=== PATIENT | female | born 1935 | race Caucasian/White ===

== ENCOUNTER 2016-10-19 15:39 | Emergency (ER) | payer MEDICAID, MEDICARE ==
[~2016-10-19] VITALS: Ht 165.1 cm; Wt 48.0 kg
[~2016-10-19 15:39] MED LIST: ACET-2178 PO; ALBU2.5V13 IH; AMLO10TA4 PO; ASPI-1035 PO; CRAN450T10 PO; DOCU-138 PO; FLEET ENEMA RC; LEVO500T15 PO; MULT-278 PO; VIT D3 PO; VITAMIN B COMPLEX PO
[2016-10-19 16:29] LABS: CHLORIDE 99 mEq/L (98-107); INDEX HEMOLYSI 1 (1-3); INDEX ICTERIC 1 (1-4); INDEX LIPEMIC 1 (1-3)
[2016-10-19 16:31] LABS: INR 1.2; PROTHROMBIN TIME 12.1 sec
[2016-10-19 16:32] LABS: BASOPHILS % 0.7 % (0.0-2.0); HEMATOCRIT. 33.2 % (36.0-48.0); HEMOGLOBIN. 10.9 g/dL (12.0-16.0); LYMPHOCYTES % 26.8 % (20.0-50.0); MEAN CORPUSCULAR HEMOGLOBIN 26.4 pg (28.0-32.0); MEAN CORPUSCULAR HGB CONC 32.8 g/dL (31.0-37.0); MEAN CORPUSCULAR VOLUME 80.4 fL (81.0-99.0); MEAN PLATELET VOLUME 6.5 fl (7.4-10.4); MONOCYTES % 9.7 % (2.0-8.0); NEUTROPHILS % 59.8 % (40.0-76.0); PLATELET 330 x1000/uL (130-400); RED BLOOD CELL COUNT 4.13 mill/uL (4.2-5.4); RED CELL DISTRIBUTION WIDTH 14.2 % (11.6-14.6); WHITE BLOOD COUNT 9.2 x1000/uL (4.5-11.0)
[2016-10-19 16:35] LABS: ALANINE AMINOTRANSFERASE 20 IU/L (13-61); ALBUMIN 2.6 g/dL (3.4-5.0); ANION GAP 12; CARBON DIOXIDE 27 mEq/L (21-32); UREA NITROGEN BLOOD 17 mg/dL (7-21)
[2016-10-19 16:37] LABS: eGFR > 60 mL/min (>60)
[2016-10-19 20:16] VITALS: BP 151/67
== END 2016-10-19 22:36 | disposition home or self-care (01) ==
LOC: ER 15:41
DX: N93.9 Abnormal uterine and vaginal bleeding, unspecified (principal); I10 Essential (primary) hypertension; M19.90 Unspecified osteoarthritis, unspecified site; F20.9 Schizophrenia, unspecified; F03.90 Unspecified dementia, unspecified severity, without behavioral disturbance, psychotic disturbance, mood disturbance, and anxiety; H54.0 Blindness, both eyes
CPT/HCPCS: 36415; 76856; 80053; 85025; 85610; 99285

== ENCOUNTER 2017-02-02 13:31 | Inpatient (IN) | payer MEDICARE ==
[~2017-02-02] VITALS: Ht 157.5 cm; Wt 49.9 kg
[~2017-02-02 13:31] MED LIST changes: -ASPI-1035 PO; +ASPI-1159 PO
[2017-02-02] MEDS ORDERED: SODIUM CHLORIDE 0.9% 1,000 ML IV ONE (15:50)
[2017-02-02 16:24] LABS: BASOPHILS % 0.7 % (0.0-2.0); HEMATOCRIT. 38.8 % (36.0-48.0); HEMOGLOBIN. 12.7 g/dL (12.0-16.0); MEAN CORPUSCULAR HEMOGLOBIN 25.9 pg (28.0-32.0); MEAN CORPUSCULAR VOLUME 79.2 fL (81.0-99.0); MEAN PLATELET VOLUME 6.8 fl (7.4-10.4); MONOCYTES % 10.5 % (2.0-8.0); NEUTROPHILS % 53.8 % (40.0-76.0); PLATELET 282 x1000/uL (130-400); RED CELL DISTRIBUTION WIDTH 15.5 % (11.6-14.6)
[2017-02-02 16:31] LABS: INR 1.1; PROTHROMBIN TIME 11.9 sec
[2017-02-02 16:33] LABS: CARBON DIOXIDE 27 mEq/L (21-32); CHLORIDE 99 mEq/L (98-107)
[2017-02-02 16:40] LABS: TROPONIN I < 0.02 ng/mL (0.00-0.04)
[2017-02-02] MEDS ORDERED: LORAZEPAM 2MG/ML CPJ IV ONE ×2 (17:15→18:30)
[2017-02-02] MEDS ORDERED: PIPERACILLIN/TAZ 3.375G PREMIX 50 ML IV ONE (18:30)
[2017-02-02] MEDS ORDERED: VANCOMYCIN 1 G PREMIX 200 ML IV SCH (18:30)
[2017-02-02 19:52] LABS: CLARITY URINE TURBID (CLEAR); COLOR URINE YELLOW (YELLOW); GLUCOSE URINE NEGATIVE (NEGATIVE); KETONES URINE NEGATIVE (NEGATIVE); LEUKOCYTE ESTERASE URINE 3+ (NEGATIVE); NITRITE URINE POSITIVE (NEGATIVE); OCCULT BLOOD URINE 3+ (NEGATIVE); PH URINE 7.5 (4.5-8.0); PROTEIN URINE 1+ (NEGATIVE); SPECIFIC GRAVITY URINE 1.009 (1.005-1.030); UROBILINOGEN URINE 0.2 E.U./dL (0.2-1.0)
[2017-02-03] VITALS: BP 139/70
[2017-02-03] MEDS ORDERED: [UNRECOGNIZED DRUG - OTHER] PO (00:43)
[2017-02-03] MEDS ORDERED: CLON0.1T PO (00:43)
[2017-02-03] MEDS ORDERED: DEXT15DR5 EACHEYE (00:43)
[2017-02-03] MEDS ORDERED: CEFTRIAXONE SODIUM 1 G/VIAL IV SCH (04:00)
[2017-02-03] MEDS ORDERED: AZITHROMYCIN 500 MG in DEXT 5% WATER 250 ML IV SCH (04:00)
[2017-02-03] MEDS ORDERED: CEFTRIAXONE 1 G PREMIX 50 ML IV SCH (05:00)
[2017-02-03 06:26] LABS: CHLORIDE 102 mEq/L (98-107)
[2017-02-03 06:59] LABS: CARBON DIOXIDE 21 mEq/L (21-32)
[2017-02-03 07:09] LABS: BASOPHILS % 0.8 % (0.0-2.0); EOSINOPHILS % 2.7 % (0.0-5.0); HEMATOCRIT. 33.3 % (36.0-48.0); HEMOGLOBIN. 10.8 g/dL (12.0-16.0); LYMPHOCYTES % 20.9 % (20.0-50.0); MEAN CORPUSCULAR VOLUME 80.1 fL (81.0-99.0); MEAN PLATELET VOLUME 6.8 fl (7.4-10.4); MONOCYTES % 12.3 % (2.0-8.0); NEUTROPHILS % 63.3 % (40.0-76.0); PLATELET 260 x1000/uL (130-400); RED BLOOD CELL COUNT 4.15 mill/uL (4.2-5.4); RED CELL DISTRIBUTION WIDTH 15.3 % (11.6-14.6)
[2017-02-03 08:30] VITALS: BP 106/46
[2017-02-03 12:30] VITALS: BP 116/57
[2017-02-03] MEDS ORDERED: LEVOFLOXACIN 500MG PREMIX 100 ML IV NR (16:00)
[2017-02-03 17:00] VITALS: BP 120/53
[2017-02-03] MEDS ORDERED: ACETAMINOPHEN 325MG TABLET PO PRN (19:15)
[2017-02-03] MEDS ORDERED: CLONIDINE 0.1MG TABLET PO SCH (19:15)
[2017-02-03] MEDS ORDERED: CLONIDINE 0.1MG TABLET PO PRN (19:45)
[2017-02-03 20:00] VITALS: BP 123/57
[2017-02-04] VITALS: BP 122/79
[2017-02-04 04:00] VITALS: BP 115/45
[2017-02-04] MEDS ORDERED: AZITHROMYCIN 500 MG in DEXT 5% WATER 250 ML IV SCH (04:00)
[2017-02-04 08:00] VITALS: BP 136/67
[2017-02-04] MEDS: CHOLECALCIFEROL (D3) 1000 UNIT TABLET PO SCH (08:20)
[2017-02-04] MEDS: DOCUSATE SODIUM 100MG CAPSULE PO SCH ×2 (08:21→17:25)
[2017-02-04] MEDS: ASPIRIN 81MG EC TABLET PO SCH (08:21)
[2017-02-04] MEDS: AMLODIPINE 10MG TABLET PO SCH (08:21)
[2017-02-04] MEDS: VITAMIN B / W-C 1 TAB PO SCH (08:22)
[2017-02-04] MEDS ORDERED: INTLU PO SCH (09:00)
[2017-02-04 12:00] VITALS: BP 113/55
[2017-02-04] MEDS ORDERED: LEVOFLOXACIN 250MG PREMIX 50 ML IV SCH (14:00)
[2017-02-04 16:00] VITALS: BP 120/67
[2017-02-04 20:00] VITALS: BP 117/73
[2017-02-05] VITALS: BP 145/74
[2017-02-05 04:00] VITALS: BP 112/51
[2017-02-05] MEDS ORDERED: MEROPENEM IV (07:40)
[2017-02-05 08:00] VITALS: BP 126/66
[2017-02-05] MEDS: ASPIRIN 81MG EC TABLET PO SCH (08:29)
[2017-02-05] MEDS: CHOLECALCIFEROL (D3) 1000 UNIT TABLET PO SCH (08:29)
[2017-02-05] MEDS: VITAMIN B / W-C 1 TAB PO SCH (08:29)
[2017-02-05] MEDS: DOCUSATE SODIUM 100MG CAPSULE PO SCH (08:29)
[2017-02-05] MEDS: AMLODIPINE 10MG TABLET PO SCH (08:30)
[2017-02-05] MEDS ORDERED: MEROPENEM 500 MG in SODIUM CHLORIDE 0.9% 50 ML IV SCH (10:00)
[2017-02-05] MEDS ORDERED: LEVOFLOXACIN 250MG TABLET PO SCH (11:00)
[2017-02-05 12:00] VITALS: BP 111/44
[2017-02-05 12:20] LABS: BASOPHILS % 0.5 % (0.0-2.0); EOSINOPHILS % 2.2 % (0.0-5.0); HEMATOCRIT. 34.9 % (36.0-48.0); HEMOGLOBIN. 11.3 g/dL (12.0-16.0); LYMPHOCYTES % 29.2 % (20.0-50.0); MEAN CORPUSCULAR HEMOGLOBIN 25.9 pg (28.0-32.0); MEAN CORPUSCULAR VOLUME 79.6 fL (81.0-99.0); MEAN PLATELET VOLUME 6.8 fl (7.4-10.4); NEUTROPHILS % 57.1 % (40.0-76.0); PLATELET 259 x1000/uL (130-400); RED BLOOD CELL COUNT 4.38 mill/uL (4.2-5.4); RED CELL DISTRIBUTION WIDTH 15.3 % (11.6-14.6)
[2017-02-05 12:30] VITALS: BP 121/74
[2017-02-05 12:46] LABS: CARBON DIOXIDE 27 mEq/L (21-32); CHLORIDE 99 mEq/L (98-107)
== END 2017-02-05 15:20 | DRG 871 ==
LOC: ER 14:02 → EDBEDREQ 19:02 → EDBEDREQTM 19:02 → 5WST 19:56 → EDBEDREQ 19:56 → ENRESERV 23:10
PROVIDERS: ADMIT Family Medicine; ATTEND Family Medicine
DX: A41.9 Sepsis, unspecified organism (principal); E43 Unspecified severe protein-calorie malnutrition; G93.40 Encephalopathy, unspecified; J18.9 Pneumonia, unspecified organism; N39.0 Urinary tract infection, site not specified; N10 Acute pyelonephritis; E86.0 Dehydration; F03.90 Unspecified dementia, unspecified severity, without behavioral disturbance, psychotic disturbance, mood disturbance, and anxiety; F20.9 Schizophrenia, unspecified; H40.9 Unspecified glaucoma; H54.8 Legal blindness, as defined in USA; H91.90 Unspecified hearing loss, unspecified ear; I11.9 Hypertensive heart disease without heart failure; Y95 Nosocomial condition; Z96.649 Presence of unspecified artificial hip joint; E11.9 Type 2 diabetes mellitus without complications; K59.00 Constipation, unspecified; Z86.73 Personal history of transient ischemic attack (TIA), and cerebral infarction without residual deficits; Z87.81 Personal history of (healed) traumatic fracture; Z87.442 Personal history of urinary calculi; Z79.82 Long term (current) use of aspirin; Z79.899 Other long term (current) drug therapy; Z68.20 Body mass index [BMI] 20.0-20.9, adult
CPT/HCPCS: 36415; 51702; 70450; 71010; 76770; 80048; 80053; 81001; 83605; 83880; 84484; 85025; 85610; 87040; 87077; 87086; 87186; 92610; 93005; 96361; 96365; 96367; 96375; 96376; 97162; 97166; 99285; J0456; J0696; J1956; J2060; J2185; J2543; J3370; J7030; J7040; J7060; A4315

== ENCOUNTER 2017-03-22 12:22 | Emergency (ER) | payer MEDICARE ==
[~2017-03-22] VITALS: Ht 160 cm; Wt 60.0 kg
[~2017-03-22 12:22] MED LIST changes: +CLON0.1T PO; +DEXT15DR5 EACHEYE; -LEVO500T15 PO; +MEROPENEM IV; +[UNRECOGNIZED DRUG - OTHER] PO
[2017-03-22 13:14] LABS: BASOPHILS % 0.4 % (0.0-2.0); EOSINOPHILS % 1.1 % (0.0-5.0); HEMATOCRIT. 37.4 % (36.0-48.0); HEMOGLOBIN. 12.1 g/dL (12.0-16.0); LYMPHOCYTES % 15.9 % (20.0-50.0); MEAN CORPUSCULAR HEMOGLOBIN 25.9 pg (28.0-32.0); MEAN CORPUSCULAR VOLUME 79.8 fL (81.0-99.0); MEAN PLATELET VOLUME 7.1 fl (7.4-10.4); NEUTROPHILS % 73.6 % (40.0-76.0); PLATELET 232 x1000/uL (130-400); RED BLOOD CELL COUNT 4.68 mill/uL (4.2-5.4); RED CELL DISTRIBUTION WIDTH 15.5 % (11.6-14.6)
[2017-03-22 13:18] LABS: INR 1.2
[2017-03-22 13:28] LABS: CARBON DIOXIDE 28 mEq/L (21-32); CHLORIDE 103 mEq/L (98-107); TROPONIN I < 0.02 ng/mL (0.00-0.04)
[2017-03-22] MEDS ORDERED: ASPIRIN 300MG SUPP PR ONE (16:00)
[2017-03-22 18:01] VITALS: BP 121/55
== END 2017-03-22 18:13 ==
LOC: ER 13:05
DX: R07.9 Chest pain, unspecified (principal); M19.90 Unspecified osteoarthritis, unspecified site; I51.7 Cardiomegaly; J98.11 Atelectasis; F03.90 Unspecified dementia, unspecified severity, without behavioral disturbance, psychotic disturbance, mood disturbance, and anxiety; H40.9 Unspecified glaucoma; I10 Essential (primary) hypertension; F20.9 Schizophrenia, unspecified; Z79.82 Long term (current) use of aspirin
CPT/HCPCS: 36415; 71010; 80053; 83880; 84484; 85025; 85610; 93005; 99285

== ENCOUNTER 2017-09-23 15:32 | Emergency (ER) | payer MEDICARE, MEDICAID ==
[~2017-09-23] VITALS: Ht 160 cm; Wt 54.0 kg
[2017-09-23 17:30] LABS: CHLORIDE 103 mEq/L (98-107)
[2017-09-23 17:31] LABS: BASOPHILS % 0.5 % (0.0-2.0); EOSINOPHILS % 3.5 % (0.0-5.0); HEMATOCRIT. 36.2 % (36.0-48.0); LYMPHOCYTES % 21.7 % (20.0-50.0); MEAN CORPUSCULAR HEMOGLOBIN 25.9 pg (28.0-32.0); MEAN CORPUSCULAR VOLUME 78.1 fL (81.0-99.0); MEAN PLATELET VOLUME 7.2 fl (7.4-10.4); MONOCYTES % 9.5 % (2.0-8.0); NEUTROPHILS % 64.8 % (40.0-76.0); PLATELET 298 x1000/uL (130-400); RED BLOOD CELL COUNT 4.63 mill/uL (4.2-5.4); RED CELL DISTRIBUTION WIDTH 15.8 % (11.6-14.6)
[2017-09-23 17:49] VITALS: BP 123/60
== END 2017-09-23 23:07 ==
LOC: ER 15:32
DX: M54.9 Dorsalgia, unspecified (principal); F03.90 Unspecified dementia, unspecified severity, without behavioral disturbance, psychotic disturbance, mood disturbance, and anxiety; F20.9 Schizophrenia, unspecified; H40.9 Unspecified glaucoma; D64.9 Anemia, unspecified; I10 Essential (primary) hypertension; J44.9 Chronic obstructive pulmonary disease, unspecified; H54.7 Unspecified visual loss; H91.90 Unspecified hearing loss, unspecified ear; Z79.82 Long term (current) use of aspirin; Z87.442 Personal history of urinary calculi; Z87.440 Personal history of urinary (tract) infections
CPT/HCPCS: 36415; 80048; 85025; 99285

== ENCOUNTER 2017-10-20 14:00 | Inpatient (IN) | payer MEDICARE, MEDICAID ==
[~2017-10-20] VITALS: Ht 162.6 cm; Wt 46.9 kg
[2017-10-20] MEDS ORDERED: SODIUM CHLORIDE 0.9% 1,000 ML IV ONE (14:43)
[2017-10-20] MEDS ORDERED: ACETAMINOPHEN 325MG TABLET PO ONE (14:45)
[2017-10-20 15:16] LABS: CHLORIDE 105 mEq/L (98-107)
[2017-10-20 15:18] LABS: BASOPHILS % 0.5 % (0.0-2.0); EOSINOPHILS % 3.6 % (0.0-5.0); HEMATOCRIT. 36.9 % (36.0-48.0); HEMOGLOBIN. 11.8 g/dL (12.0-16.0); LYMPHOCYTES % 22.2 % (20.0-50.0); MEAN CORPUSCULAR HEMOGLOBIN 24.9 pg (28.0-32.0); MEAN CORPUSCULAR VOLUME 78.1 fL (81.0-99.0); MEAN PLATELET VOLUME 7.3 fl (7.4-10.4); MONOCYTES % 9.9 % (2.0-8.0); NEUTROPHILS % 63.8 % (40.0-76.0); PLATELET 256 x1000/uL (130-400); RED BLOOD CELL COUNT 4.73 mill/uL (4.2-5.4); RED CELL DISTRIBUTION WIDTH 15.2 % (11.6-14.6)
[2017-10-20 15:19] LABS: INR 1.1; PARTIAL THROMBOPLASTIN TIME 25.8 sec (23.4-31.0); PROTHROMBIN TIME 11.6 sec (9.4-11.6)
[2017-10-20] MEDS ORDERED: LEVOFLOXACIN 750MG PREMIX 150 ML IV ONE (17:00)
[2017-10-20] MEDS ORDERED: SODIUM CHLORIDE 0.9% 1000ML BAG (SEPSIS BOLUS) IV ONE (17:00)
[2017-10-20] MEDS ORDERED: MAGNESIUM/ALUMINUM HYDROXIDE/SIMETHICONE 30ML UDC PO PRN (20:00)
[2017-10-20] MEDS ORDERED: NA PHOS,M-B/NA PHOS,DI-BA ENEMA 118ML PR PRN (20:00)
[2017-10-20] MEDS ORDERED: ACETAMINOPHEN 650MG SUPP PR PRN (20:00)
[2017-10-20] MEDS ORDERED: GUAIFENESIN 200MG/10ML SUGAR FREE UDC PO PRN (20:00)
[2017-10-20] MEDS ORDERED: DOCUSATE SODIUM 100MG CAPSULE PO PRN (20:00)
[2017-10-20] MEDS ORDERED: DIPHENHYDRAMINE 50MG/ML VIAL IV PRN (20:00)
[2017-10-20] MEDS ORDERED: IPRATROPIUM/ALBUTEROL 0.5-3(2.5)MG/3ML NEB INH PRN (20:00)
[2017-10-20] MEDS ORDERED: ONDANSETRON HCL 4MG/2ML VIAL IV PRN (20:00)
[2017-10-20] MEDS ORDERED: ACETAMINOPHEN 325MG TABLET PO PRN (20:00)
[2017-10-20] MEDS ORDERED: ACETAMINOPHEN 650MG/20.3ML UDC GT PRN (20:00)
[2017-10-20] MEDS ORDERED: CLONIDINE 0.1MG TABLET PO PRN (20:00)
[2017-10-20] MEDS ORDERED: HYDROCODONE/ACETAMINOPHEN 5/325MG TABLET PO PRN (20:00)
[2017-10-20] MEDS ORDERED: LORAZEPAM 2MG/ML CPJ IV ONE (21:15)
[2017-10-20 22:53] LABS: CREATINE KINASE 40 IU/L (26-192)
[2017-10-20 23:55] VITALS: BP 122/58
[2017-10-21 00:44] LABS: CLARITY URINE TURBID (CLEAR); COLOR URINE YELLOW (YELLOW); KETONES URINE NEGATIVE (NEGATIVE); LEUKOCYTE ESTERASE URINE 3+ (NEGATIVE); NITRITE URINE NEGATIVE (NEGATIVE); OCCULT BLOOD URINE 2+ (NEGATIVE); PH URINE 7.5 (4.5-8.0); PROTEIN URINE NEGATIVE (NEGATIVE); SPECIFIC GRAVITY URINE 1.009 (1.005-1.030); UROBILINOGEN URINE 0.2 E.U./dL (0.2-1.0)
[2017-10-21] MEDS: ENOXAPARIN 40MG/0.4ML SYR SUBCUT SCH ×2 (01:12→20:19)
[2017-10-21] MEDS: DEXT 5%/0.45% NACL 1000ML 1,000 ML IV SCH ×2 (01:13→13:15)
[2017-10-21 01:16] LABS: *AMPHETAMINES SCREEN URINE NEGATIVE (NEGATIVE); *BARBITURATES SCREEN URINE NEGATIVE (NEGATIVE); *BENZODIAZEPINES SCREEN URINE NEGATIVE (NEGATIVE); *COCAINE SCREEN URINE NEGATIVE (NEGATIVE)
[2017-10-21 01:17] LABS: CANNABINOID URINE SCREEN NEGATIVE (NEGATIVE); METHADONE URINE SCREEN NEGATIVE (NEGATIVE); OPIATES URINE SCREEN NEGATIVE (NEGATIVE); PHENCYCLIDINE URINE SCREEN NEGATIVE (NEGATIVE)
[2017-10-21] MEDS: ALBUTEROL (0.083%) 2.5MG/3ML NEB HHN SCH ×3 (02:06→20:33)
[2017-10-21] MEDS ORDERED: DEXT15DR5 EACHEYE (02:43)
[2017-10-21 04:00] VITALS: BP 127/57
[2017-10-21] MEDS: SODIUM CHLORIDE 0.9% INJ 3ML FLUSH IVF SCH ×3 (06:07→20:19)
[2017-10-21 07:20] LABS: BASOPHILS % 0.8 % (0.0-2.0); EOSINOPHILS % 3.5 % (0.0-5.0); HEMATOCRIT. 36.5 % (36.0-48.0); HEMOGLOBIN. 11.8 g/dL (12.0-16.0); LYMPHOCYTES % 22.3 % (20.0-50.0); MEAN CORPUSCULAR HEMOGLOBIN 25.4 pg (28.0-32.0); MEAN CORPUSCULAR VOLUME 78.7 fL (81.0-99.0); MONOCYTES % 9.6 % (2.0-8.0); NEUTROPHILS % 63.8 % (40.0-76.0); PLATELET 257 x1000/uL (130-400); RED BLOOD CELL COUNT 4.64 mill/uL (4.2-5.4); RED CELL DISTRIBUTION WIDTH 15.3 % (11.6-14.6)
[2017-10-21 08:00] VITALS: BP 132/42
[2017-10-21 08:22] LABS: CHLORIDE 105 mEq/L (98-107)
[2017-10-21 08:36] LABS: LDL CHOLESTEROL 101 mg/dL (5-100)
[2017-10-21 08:37] LABS: CREATINE KINASE 38 IU/L (26-192)
[2017-10-21 08:38] LABS: HDL CHOLESTEROL 74 mg/dL (40-59)
[2017-10-21] MEDS: CEFTRIAXONE 1 G PREMIX 50 ML IV SCH (09:16)
[2017-10-21] MEDS: AZITHROMYCIN 500 MG in SODIUM CHLORIDE 0.9% 250 ML IV SCH (10:17)
[2017-10-21 12:00] VITALS: BP 111/45
[2017-10-21 16:00] VITALS: BP 122/42
[2017-10-21 20:00] VITALS: BP 123/46
[2017-10-22] VITALS (7 sets, daily range): BP systolic 99–136; BP diastolic 35–58
[2017-10-22] MEDS: DEXT 5%/0.45% NACL 1000ML 1,000 ML IV SCH ×3 (05:20→20:35)
[2017-10-22] MEDS: SODIUM CHLORIDE 0.9% INJ 3ML FLUSH IVF SCH ×3 (05:20→20:35)
[2017-10-22] MEDS: ALBUTEROL (0.083%) 2.5MG/3ML NEB HHN SCH ×3 (09:08→19:59)
[2017-10-22] MEDS: CEFTRIAXONE 1 G PREMIX 50 ML IV SCH (09:36)
[2017-10-22] MEDS: AZITHROMYCIN 500 MG in SODIUM CHLORIDE 0.9% 250 ML IV SCH (10:07)
[2017-10-22] MEDS: ENOXAPARIN 40MG/0.4ML SYR SUBCUT SCH (20:35)
[2017-10-22 20:42] LABS: BASOPHILS % 0.5 % (0.0-2.0); HEMATOCRIT. 32.9 % (36.0-48.0); HEMOGLOBIN. 10.8 g/dL (12.0-16.0); LYMPHOCYTES % 31.7 % (20.0-50.0); MEAN CORPUSCULAR HEMOGLOBIN 25.9 pg (28.0-32.0); MEAN CORPUSCULAR VOLUME 78.6 fL (81.0-99.0); MEAN PLATELET VOLUME 7.3 fl (7.4-10.4); MONOCYTES % 7.6 % (2.0-8.0); NEUTROPHILS % 57.2 % (40.0-76.0); PLATELET 233 x1000/uL (130-400); RED BLOOD CELL COUNT 4.19 mill/uL (4.2-5.4); RED CELL DISTRIBUTION WIDTH 15.6 % (11.6-14.6)
[2017-10-22 22:19] LABS: CHLORIDE 106 mEq/L (98-107)
[2017-10-23] VITALS (7 sets, daily range): BP systolic 101–149; BP diastolic 43–61
[2017-10-23] MEDS: ALBUTEROL (0.083%) 2.5MG/3ML NEB HHN SCH ×3 (02:01→20:15)
[2017-10-23] MEDS: CEFTRIAXONE 1 G PREMIX 50 ML IV SCH (09:40)
[2017-10-23] MEDS: AZITHROMYCIN 500 MG in SODIUM CHLORIDE 0.9% 250 ML IV SCH (10:40)
[2017-10-23] MEDS ORDERED: LEVO500T2 PO (15:24)
[2017-10-23] MEDS ORDERED: MEROPENEM 500 MG in SODIUM CHLORIDE 0.9% 50 ML IV SCH (18:00)
[2017-10-23] MEDS: DEXT 5%/0.45% NACL 1000ML 1,000 ML IV SCH (18:12)
[2017-10-24] MEDS ORDERED: AZITHROMYCIN 500 MG TABLET PO SCH (09:00)
== END 2017-10-23 20:52 | DRG 871 ==
LOC: ER 14:13 → EDBEDREQ 14:47 → 7WST 17:05 → EDBEDREQ 17:09 → ENRESERV 22:42
PROVIDERS: ADMIT Family Medicine; ATTEND Family Medicine
DX: A41.9 Sepsis, unspecified organism (principal); E43 Unspecified severe protein-calorie malnutrition; I11.0 Hypertensive heart disease with heart failure; I50.9 Heart failure, unspecified; J18.1 Lobar pneumonia, unspecified organism; F03.90 Unspecified dementia, unspecified severity, without behavioral disturbance, psychotic disturbance, mood disturbance, and anxiety; N39.0 Urinary tract infection, site not specified; Z68.1 Body mass index [BMI] 19.9 or less, adult; M06.9 Rheumatoid arthritis, unspecified; F20.9 Schizophrenia, unspecified; H40.9 Unspecified glaucoma; H54.8 Legal blindness, as defined in USA; R62.7 Adult failure to thrive; H91.90 Unspecified hearing loss, unspecified ear; M19.90 Unspecified osteoarthritis, unspecified site; B96.89 Other specified bacterial agents as the cause of diseases classified elsewhere; J44.9 Chronic obstructive pulmonary disease, unspecified; Z96.649 Presence of unspecified artificial hip joint; Z91.81 History of falling; Z87.81 Personal history of (healed) traumatic fracture; Z86.73 Personal history of transient ischemic attack (TIA), and cerebral infarction without residual deficits; Z87.440 Personal history of urinary (tract) infections; Z87.442 Personal history of urinary calculi; Z79.899 Other long term (current) drug therapy; Z79.82 Long term (current) use of aspirin
CPT/HCPCS: 36415; 51702; 70450; 71045; 72070; 72100; 73030; 73521; 80053; 80061; 80305; 81003; 82550; 83605; 83880; 84484; 85025; 85610; 85730; 87040; 87077; 87086; 87186; 92610; 93005; 94640; 96361; 96365; 96375; 97162; 99285; J0456; J0696; J1650; J1956; J2060; J2185; J7030; J7050; J7611; A4315

== ENCOUNTER 2017-12-10 21:58 | Inpatient (IN) | payer MEDICARE, MEDICAID ==
[~2017-12-10] VITALS: Ht 162.6 cm; Wt 58.1 kg
[~2017-12-10 21:58] MED LIST changes: +LEVO500T2 PO
[2017-12-11 00:48] LABS: BASOPHILS % 0.7 % (0.0-2.0); EOSINOPHILS % 2.9 % (0.0-5.0); HEMATOCRIT. 37.5 % (36.0-48.0); HEMOGLOBIN. 12.4 g/dL (12.0-16.0); LYMPHOCYTES % 26.8 % (20.0-50.0); MEAN CORPUSCULAR HEMOGLOBIN 25.7 pg (28.0-32.0); MEAN CORPUSCULAR VOLUME 77.4 fL (81.0-99.0); MEAN PLATELET VOLUME 6.6 fl (7.4-10.4); MONOCYTES % 7.4 % (2.0-8.0); NEUTROPHILS % 62.2 % (40.0-76.0); PLATELET 292 x1000/uL (130-400); RED BLOOD CELL COUNT 4.84 mill/uL (4.2-5.4); RED CELL DISTRIBUTION WIDTH 15.9 % (11.6-14.6)
[2017-12-11 00:55] LABS: INR 1.2; PROTHROMBIN TIME 12.2 sec (9.4-11.6)
[2017-12-11 01:00] LABS: CHLORIDE 101 mEq/L (98-107)
[2017-12-11 02:41] LABS: CLARITY URINE TURBID (CLEAR); COLOR URINE RED (YELLOW); KETONES URINE 2+ (NEGATIVE); LEUKOCYTE ESTERASE URINE 3+ (NEGATIVE); NITRITE URINE POSITIVE (NEGATIVE); OCCULT BLOOD URINE 3+ (NEGATIVE); PROTEIN URINE 4+ (NEGATIVE); SPECIFIC GRAVITY URINE 1.022 (1.005-1.030)
[2017-12-11] MEDS ORDERED: CEFTRIAXONE 1 G PREMIX 50 ML IV SCH (05:30)
[2017-12-11 09:30] VITALS: BP 142/44
[2017-12-11 10:32] VITALS: BP 142/44
[2017-12-11] MEDS ORDERED: MAGNESIUM/ALUMINUM HYDROXIDE/SIMETHICONE 30ML UDC PO PRN (11:45)
[2017-12-11] MEDS ORDERED: ACETAMINOPHEN 325MG TABLET PO PRN (11:45)
[2017-12-11] MEDS ORDERED: NA PHOS,M-B/NA PHOS,DI-BA ENEMA 118ML PR PRN (11:45)
[2017-12-11] MEDS ORDERED: DOCUSATE SODIUM 100MG CAPSULE PO PRN (11:45)
[2017-12-11] MEDS ORDERED: GUAIFENESIN 200MG/10ML SUGAR FREE UDC PO PRN (11:45)
[2017-12-11] MEDS ORDERED: ACETAMINOPHEN 650MG/20.3ML UDC GT PRN (11:45)
[2017-12-11] MEDS ORDERED: LORAZEPAM 0.5MG TABLET PO PRN (11:45)
[2017-12-11] MEDS ORDERED: ONDANSETRON HCL 4MG/2ML VIAL IV PRN (11:45)
[2017-12-11] MEDS ORDERED: HYDROCODONE/ACETAMINOPHEN 5/325MG TABLET PO PRN (11:45)
[2017-12-11] MEDS ORDERED: CLONIDINE 0.1MG TABLET PO PRN (11:45)
[2017-12-11] MEDS ORDERED: ACETAMINOPHEN 650MG SUPP PR PRN (11:45)
[2017-12-11] MEDS ORDERED: IPRATROPIUM/ALBUTEROL 0.5-3(2.5)MG/3ML NEB INH PRN (11:45)
[2017-12-11] MEDS ORDERED: DIPHENHYDRAMINE 50MG/ML VIAL IV PRN (11:45)
[2017-12-11 12:00] VITALS: BP 102/35
[2017-12-11] MEDS: DEXT 5%/0.45% NACL 1000ML 1,000 ML IV SCH (13:01)
[2017-12-11 13:37] LABS: HEMATOCRIT. 37.4 % (36.0-48.0); HEMOGLOBIN. 11.8 g/dL (12.0-16.0); MEAN CORPUSCULAR HEMOGLOBIN 25.4 pg (28.0-32.0); MEAN CORPUSCULAR VOLUME 80.8 fL (81.0-99.0); MEAN PLATELET VOLUME 7.2 fl (7.4-10.4); PLATELET 282 x1000/uL (130-400); RED BLOOD CELL COUNT 4.63 mill/uL (4.2-5.4); RED CELL DISTRIBUTION WIDTH 16.3 % (11.6-14.6)
[2017-12-11] MEDS: SODIUM CHLORIDE 0.9% INJ 3ML FLUSH IVF SCH ×2 (13:56→22:00)
[2017-12-11 14:11] LABS: PLATELET ESTIMATE NORMAL
[2017-12-11 15:51] LABS: CLARITY URINE TURBID (CLEAR); COLOR URINE RED (YELLOW); KETONES URINE 2+ (NEGATIVE); LEUKOCYTE ESTERASE URINE 3+ (NEGATIVE); NITRITE URINE POSITIVE (NEGATIVE); OCCULT BLOOD URINE 3+ (NEGATIVE); PROTEIN URINE 2+ (NEGATIVE); SPECIFIC GRAVITY URINE 1.006 (1.005-1.030)
[2017-12-11 16:00] VITALS: BP 131/39
[2017-12-11 16:22] LABS: *AMPHETAMINES SCREEN URINE NEGATIVE (NEGATIVE); *BARBITURATES SCREEN URINE NEGATIVE (NEGATIVE)
[2017-12-11 16:23] LABS: *BENZODIAZEPINES SCREEN URINE NEGATIVE (NEGATIVE); *COCAINE SCREEN URINE NEGATIVE (NEGATIVE); CANNABINOID URINE SCREEN NEGATIVE (NEGATIVE); METHADONE URINE SCREEN NEGATIVE (NEGATIVE); OPIATES URINE SCREEN NEGATIVE (NEGATIVE); PHENCYCLIDINE URINE SCREEN NEGATIVE (NEGATIVE)
[2017-12-11 20:00] VITALS: BP 93/36
[2017-12-12 00:04] VITALS: BP 97/37
[2017-12-12] MEDS: LEVOFLOXACIN 500MG PREMIX 100 ML IV SCH (01:27)
[2017-12-12] MEDS: DEXT 5%/0.45% NACL 1000ML 1,000 ML IV SCH ×2 (01:28→13:28)
[2017-12-12 04:00] VITALS: BP 113/46
[2017-12-12] MEDS: SODIUM CHLORIDE 0.9% INJ 3ML FLUSH IVF SCH ×2 (05:26→14:31)
[2017-12-12 07:54] LABS: HEMATOCRIT. 32.1 % (36.0-48.0); HEMOGLOBIN. 10.4 g/dL (12.0-16.0); MEAN CORPUSCULAR HEMOGLOBIN 25.3 pg (28.0-32.0); MEAN CORPUSCULAR VOLUME 78.2 fL (81.0-99.0); MEAN PLATELET VOLUME 7.5 fl (7.4-10.4); PLATELET 244 x1000/uL (130-400); RED CELL DISTRIBUTION WIDTH 15.9 % (11.6-14.6)
[2017-12-12 08:00] VITALS: BP 111/83
[2017-12-12 08:09] LABS: CHLORIDE 105 mEq/L (98-107)
[2017-12-12 08:20] LABS: LDL CHOLESTEROL 59 mg/dL (5-100)
[2017-12-12 08:21] LABS: HDL CHOLESTEROL 67 mg/dL (40-59)
[2017-12-12] MEDS: CEFTRIAXONE 1 G PREMIX 50 ML IV SCH (09:49)
[2017-12-12 12:00] VITALS: BP 129/60
[2017-12-12 12:05] LABS: PLATELET ESTIMATE NORMAL
[2017-12-12 16:00] VITALS: BP 130/82
[2017-12-12 20:00] VITALS: BP 105/54
[2017-12-13] VITALS: BP 107/52
[2017-12-13 04:00] VITALS: BP 124/62
[2017-12-13] MEDS: DEXT 5%/0.45% NACL 1000ML 1,000 ML IV SCH ×2 (05:52→14:15)
[2017-12-13] MEDS: SODIUM CHLORIDE 0.9% INJ 3ML FLUSH IVF SCH ×3 (05:55→22:29)
[2017-12-13] MEDS: LEVOFLOXACIN 500MG PREMIX 100 ML IV SCH ×2 (05:55→23:35)
[2017-12-13 08:00] VITALS: BP 101/63
[2017-12-13] MEDS: CEFTRIAXONE 1 G PREMIX 50 ML IV SCH (09:18)
[2017-12-13 12:00] VITALS: BP 90/57
[2017-12-13 13:27] LABS: BASOPHILS % 0.1 % (0.0-2.0); EOSINOPHILS % 0.3 % (0.0-5.0); HEMOGLOBIN. 8.7 g/dL (12.0-16.0); LYMPHOCYTES % 7.5 % (20.0-50.0); MEAN CORPUSCULAR HEMOGLOBIN 26.1 pg (28.0-32.0); MEAN CORPUSCULAR VOLUME 78.2 fL (81.0-99.0); MEAN PLATELET VOLUME 7.4 fl (7.4-10.4); MONOCYTES % 3.7 % (2.0-8.0); NEUTROPHILS % 88.4 % (40.0-76.0); PLATELET 201 x1000/uL (130-400); RED BLOOD CELL COUNT 3.32 mill/uL (4.2-5.4); RED CELL DISTRIBUTION WIDTH 16.2 % (11.6-14.6)
[2017-12-13 13:46] LABS: CHLORIDE 104 mEq/L (98-107)
[2017-12-13 16:00] VITALS: BP 104/44
[2017-12-13 20:00] VITALS: BP 97/42
[2017-12-14] VITALS (22 sets, daily range): BP systolic 58–148; BP diastolic 20–127
[2017-12-14] MEDS: DEXT 5%/0.45% NACL 1000ML 1,000 ML IV SCH ×2 (02:11→14:01)
[2017-12-14] MEDS: SODIUM CHLORIDE 0.9% INJ 3ML FLUSH IVF SCH ×3 (06:41→21:57)
[2017-12-14] MEDS: CEFTRIAXONE 1 G PREMIX 50 ML IV SCH (09:24)
[2017-12-14] MEDS ORDERED: SODIUM CHLORIDE 0.9% 500 ML IV NR (13:00)
[2017-12-14] MEDS ORDERED: SODIUM CHLORIDE 0.9% 1000ML BAG (SEPSIS BOLUS) IV ONE (13:00)
[2017-12-14] MEDS ORDERED: SUCCINYLCHOLINE CHLORIDE 200MG/10ML VIAL IV ONE (14:08)
[2017-12-14] MEDS ORDERED: ETOMIDATE 2MG/ML 10ML VIAL IV ONE (14:08)
[2017-12-14 16:28] LABS: BASOPHILS % 0.1 % (0.0-2.0); HEMATOCRIT. 29.7 % (36.0-48.0); HEMOGLOBIN. 9.5 g/dL (12.0-16.0); LYMPHOCYTES % 7.2 % (20.0-50.0); MEAN CORPUSCULAR HEMOGLOBIN 25.3 pg (28.0-32.0); MEAN CORPUSCULAR VOLUME 78.8 fL (81.0-99.0); MEAN PLATELET VOLUME 7.2 fl (7.4-10.4); MONOCYTES % 4.5 % (2.0-8.0); NEUTROPHILS % 88.2 % (40.0-76.0); PLATELET 234 x1000/uL (130-400); RED BLOOD CELL COUNT 3.76 mill/uL (4.2-5.4); RED CELL DISTRIBUTION WIDTH 16.6 % (11.6-14.6)
[2017-12-14 16:42] LABS: CHLORIDE 108 mEq/L (98-107)
[2017-12-14] MEDS ORDERED: FUROSEMIDE 40MG/4ML VIAL IVP NR (17:30)
[2017-12-14] MEDS ORDERED: FUROSEMIDE 40MG/4ML VIAL ONE (17:34)
[2017-12-14 18:07] LABS: BG BASE EXCESS -10.1 mmol/L (-2.0-2.0); BG CARBOXYHEMOGLOBIN 0.4 % (0.5-1.5); BG DEOXYHEMOGLOBIN 0.9 % (0.0-5.0); BG FRACTION INSPIRED OXYGEN 100; BG HCO3 ACT 18.4 mmol/L (22.0-26.0); BG METHEMOGLOBIN 0.3 % (0.0-1.5); BG OXYGEN SATURATION 99.1 % (92.0-98.5); BG OXYHEMOGLOBIN 98.4 % (94.0-97.0); BG PH 7.159 (7.350-7.450); BG SAMPLE SITE LEFT RADIAL; BG TOTAL HEMOGLOBIN 10.7 g/dL (12.0-18.0); BG VENT MODE MASK - NRB
[2017-12-14] MEDS ORDERED: PROPOFOL 10MG/ML 100ML 100 ML IV PRN (19:00)
[2017-12-14 20:26] LABS: BG BASE EXCESS -7.9 mmol/L (-2.0-2.0); BG CARBOXYHEMOGLOBIN 0.2 % (0.5-1.5); BG DEOXYHEMOGLOBIN 0.5 % (0.0-5.0); BG FRACTION INSPIRED OXYGEN 75; BG HCO3 ACT 18.2 mmol/L (22.0-26.0); BG METHEMOGLOBIN 0.3 % (0.0-1.5); BG OXYGEN SATURATION 99.5 % (92.0-98.5); BG PCO2 38.9 mmHg (35.0-45.0); BG PH 7.287 (7.350-7.450); BG PO2 279.3 mmHg (75.0-100.0); BG SAMPLE SITE RIGHT RADIAL; BG TIDAL VOLUME(mL) 400 mL; BG TOTAL HEMOGLOBIN 10.2 g/dL (12.0-18.0); BG VENT MODE VENT - A/C; BG VENT RATE 14 set
[2017-12-14] MEDS: NOREPINEPHRINE 4 MG in DEXT 5% WATER 246 ML IV PRN (21:49)
[2017-12-15] VITALS (48 sets, daily range): BP systolic 84–141; BP diastolic 21–99
[2017-12-15] MEDS: LEVOFLOXACIN 500MG PREMIX 100 ML IV SCH (01:06)
[2017-12-15 01:09] LABS: BG BASE EXCESS -4.2 mmol/L (-2.0-2.0); BG CARBOXYHEMOGLOBIN 0.2 % (0.5-1.5); BG DEOXYHEMOGLOBIN 0.4 % (0.0-5.0); BG FRACTION INSPIRED OXYGEN 100; BG HCO3 ACT 21.4 mmol/L (22.0-26.0); BG METHEMOGLOBIN 0.4 % (0.0-1.5); BG OXYGEN SATURATION 99.6 % (92.0-98.5); BG PCO2 40.9 mmHg (35.0-45.0); BG PH 7.336 (7.350-7.450); BG PO2 327.9 mmHg (75.0-100.0); BG SAMPLE SITE RIGHT BRACHIAL; BG TOTAL HEMOGLOBIN 10.5 g/dL (12.0-18.0); BG VENT MODE MASK - NRB
[2017-12-15] MEDS: NOREPINEPHRINE 4 MG in DEXT 5% WATER 246 ML IV PRN (04:50)
[2017-12-15] MEDS: FUROSEMIDE 40MG/4ML VIAL IVP SCH (09:01)
[2017-12-15] MEDS: CEFTRIAXONE 1 G PREMIX 50 ML IV SCH (11:18)
[2017-12-15] MEDS: DEXT 5%/0.45% NACL 1000ML 1,000 ML IV SCH (11:57)
[2017-12-15 12:24] LABS: BG BASE EXCESS -2.7 mmol/L (-2.0-2.0); BG CARBOXYHEMOGLOBIN 0.3 % (0.5-1.5); BG DEOXYHEMOGLOBIN 4.8 % (0.0-5.0); BG FRACTION INSPIRED OXYGEN 28; BG HCO3 ACT 21.3 mmol/L (22.0-26.0); BG METHEMOGLOBIN 0.2 % (0.0-1.5); BG OXYGEN SATURATION 95.2 % (92.0-98.5); BG OXYHEMOGLOBIN 94.7 % (94.0-97.0); BG PCO2 33.7 mmHg (35.0-45.0); BG PH 7.418 (7.350-7.450); BG PO2 66.9 mmHg (75.0-100.0); BG SAMPLE SITE RIGHT BRACHIAL; BG TOTAL HEMOGLOBIN 9.2 g/dL (12.0-18.0); BG VENT MODE NASAL CANNULA
[2017-12-15] MEDS: SODIUM CHLORIDE 0.9% INJ 3ML FLUSH IVF SCH ×2 (13:47→21:44)
[2017-12-15] MEDS: IPRATROPIUM/ALBUTEROL 0.5-3(2.5)MG/3ML NEB HHN SCH ×2 (14:25→16:19)
[2017-12-16] VITALS (66 sets, daily range): BP systolic 78–130; BP diastolic 26–79
[2017-12-16] MEDS: LEVOFLOXACIN 500MG PREMIX 100 ML IV SCH (00:08)
[2017-12-16] MEDS: DEXT 5%/0.45% NACL 1000ML 1,000 ML IV SCH (08:12)
[2017-12-16] MEDS: CEFTRIAXONE 1 G PREMIX 50 ML IV SCH (08:12)
[2017-12-16] MEDS: FUROSEMIDE 40MG/4ML VIAL IVP SCH (08:12)
[2017-12-16] MEDS: PANTOPRAZOLE SODIUM 40 MG/VIAL IV SCH (12:03)
[2017-12-16] MEDS: NOREPINEPHRINE 4 MG in DEXT 5% WATER 246 ML IV PRN (12:05)
[2017-12-16] MEDS: METRONIDAZOLE 500 MG PREMIX 100 ML IV SCH ×2 (13:18→23:43)
[2017-12-16] MEDS: ENOXAPARIN 40MG/0.4ML SYR SUBCUT SCH (13:18)
[2017-12-16] MEDS: SODIUM CHLORIDE 0.9% INJ 3ML FLUSH IVF SCH ×2 (13:19→22:00)
[2017-12-16] MEDS: ACETYLCYSTEINE 100MG/ML 10% VIAL 4ML INH SCH (14:25)
[2017-12-16 16:23] LABS: BASOPHILS % 0.1 % (0.0-2.0); HEMATOCRIT. 25.1 % (36.0-48.0); HEMOGLOBIN. 8.4 g/dL (12.0-16.0); LYMPHOCYTES % 10.6 % (20.0-50.0); MEAN CORPUSCULAR HEMOGLOBIN 25.4 pg (28.0-32.0); MEAN CORPUSCULAR VOLUME 76.4 fL (81.0-99.0); MEAN PLATELET VOLUME 7.2 fl (7.4-10.4); MONOCYTES % 8.5 % (2.0-8.0); NEUTROPHILS % 79.8 % (40.0-76.0); PLATELET 202 x1000/uL (130-400); RED BLOOD CELL COUNT 3.29 mill/uL (4.2-5.4); RED CELL DISTRIBUTION WIDTH 15.9 % (11.6-14.6)
[2017-12-16 16:24] LABS: CHLORIDE 106 mEq/L (98-107)
[2017-12-16] MEDS ORDERED: ALBUMIN HUMAN 25GM/100ML (25%) IV NR (18:30)
[2017-12-16] MEDS: IPRATROPIUM/ALBUTEROL 0.5-3(2.5)MG/3ML NEB HHN SCH (20:14)
[2017-12-16] MEDS: KCL 20MEQ/100ML PREMIX 100 ML IV SCH ×3 (20:40→23:02)
[2017-12-17] VITALS (55 sets, daily range): BP systolic 78–135; BP diastolic 13–118
[2017-12-17] MEDS: IPRATROPIUM/ALBUTEROL 0.5-3(2.5)MG/3ML NEB HHN SCH ×6 (00:20→20:51)
[2017-12-17] MEDS: ACETYLCYSTEINE 100MG/ML 10% VIAL 4ML INH SCH ×2 (00:21→17:23)
[2017-12-17] MEDS: LEVOFLOXACIN 500MG PREMIX 100 ML IV SCH (00:30)
[2017-12-17] MEDS: METRONIDAZOLE 500 MG PREMIX 100 ML IV SCH ×3 (05:53→22:11)
[2017-12-17] MEDS: PANTOPRAZOLE SODIUM 40 MG/VIAL IV SCH (09:40)
[2017-12-17] MEDS: FUROSEMIDE 40MG/4ML VIAL IVP SCH (09:40)
[2017-12-17] MEDS: CEFTRIAXONE 1 G PREMIX 50 ML IV SCH (09:40)
[2017-12-17] MEDS ORDERED: POTASSIUM CHLORIDE 20MEQ/PACKET PO NR ×2 (10:00→13:45)
[2017-12-17] MEDS: ENOXAPARIN 40MG/0.4ML SYR SUBCUT SCH (11:10)
[2017-12-17 11:36] LABS: BASOPHILS % 0.2 % (0.0-2.0); EOSINOPHILS % 1.3 % (0.0-5.0); HEMATOCRIT. 25.2 % (36.0-48.0); HEMOGLOBIN. 8.5 g/dL (12.0-16.0); LYMPHOCYTES % 13.2 % (20.0-50.0); MEAN CORPUSCULAR HEMOGLOBIN 26.1 pg (28.0-32.0); MEAN CORPUSCULAR VOLUME 76.9 fL (81.0-99.0); MEAN PLATELET VOLUME 6.6 fl (7.4-10.4); MONOCYTES % 11.4 % (2.0-8.0); NEUTROPHILS % 73.9 % (40.0-76.0); PLATELET 174 x1000/uL (130-400); RED BLOOD CELL COUNT 3.28 mill/uL (4.2-5.4); RED CELL DISTRIBUTION WIDTH 15.9 % (11.6-14.6)
[2017-12-17 11:56] LABS: CHLORIDE 107 mEq/L (98-107)
[2017-12-17] MEDS: DEXT 5%/0.45% NACL 1000ML 1,000 ML IV SCH ×2 (12:59→23:45)
[2017-12-18] VITALS (47 sets, daily range): BP systolic 81–148; BP diastolic 30–73
[2017-12-18] MEDS: LEVOFLOXACIN 500MG PREMIX 100 ML IV SCH ×2 (00:24→15:02)
[2017-12-18] MEDS: IPRATROPIUM/ALBUTEROL 0.5-3(2.5)MG/3ML NEB HHN SCH ×6 (00:41→20:10)
[2017-12-18] MEDS: ACETYLCYSTEINE 100MG/ML 10% VIAL 4ML INH SCH ×3 (00:42→17:14)
[2017-12-18] MEDS: SODIUM CHLORIDE 0.9% INJ 3ML FLUSH IVF SCH ×3 (06:00→21:51)
[2017-12-18] MEDS: METRONIDAZOLE 500 MG PREMIX 100 ML IV SCH ×3 (06:41→21:50)
[2017-12-18] MEDS: PANTOPRAZOLE SODIUM 40 MG/VIAL IV SCH (08:12)
[2017-12-18] MEDS: CEFTRIAXONE 1 G PREMIX 50 ML IV SCH (08:12)
[2017-12-18] MEDS: POTASSIUM CHLORIDE 20MEQ/PACKET PO SCH (08:13)
[2017-12-18] MEDS: ENOXAPARIN 40MG/0.4ML SYR SUBCUT SCH (08:13)
[2017-12-18] MEDS ORDERED: POTASSIUM CHLORIDE INJ 40 MEQ in DEXT 5% WATER 500 ML IV ONE (11:30)
[2017-12-18] MEDS: POTASSIUM CHLORIDE 20MEQ/PACKET PO NR ×2 (11:33→11:40)
[2017-12-18] MEDS: KCL 20MEQ/100ML PREMIX 100 ML IV SCH ×3 (12:00→15:44)
[2017-12-18 12:14] LABS: BASOPHILS % 0.2 % (0.0-2.0); EOSINOPHILS % 1.1 % (0.0-5.0); HEMATOCRIT. 21.4 % (36.0-48.0); HEMOGLOBIN. 7.2 g/dL (12.0-16.0); LYMPHOCYTES % 12.5 % (20.0-50.0); MEAN CORPUSCULAR HEMOGLOBIN 25.7 pg (28.0-32.0); MEAN CORPUSCULAR VOLUME 75.9 fL (81.0-99.0); MEAN PLATELET VOLUME 6.9 fl (7.4-10.4); MONOCYTES % 7.7 % (2.0-8.0); NEUTROPHILS % 78.5 % (40.0-76.0); PLATELET 179 x1000/uL (130-400); RED BLOOD CELL COUNT 2.81 mill/uL (4.2-5.4); RED CELL DISTRIBUTION WIDTH 15.9 % (11.6-14.6)
[2017-12-18 12:16] LABS: CHLORIDE 103 mEq/L (98-107)
[2017-12-18] MEDS: MEGESTROL ACETATE 400 MG/10 ML UDC PO SCH (17:58)
[2017-12-19] VITALS (7 sets, daily range): BP systolic 97–125; BP diastolic 40–58
[2017-12-19] MEDS: ACETYLCYSTEINE 100MG/ML 10% VIAL 4ML INH SCH ×2 (01:08→09:59)
[2017-12-19] MEDS: IPRATROPIUM/ALBUTEROL 0.5-3(2.5)MG/3ML NEB HHN SCH ×5 (01:08→16:56)
[2017-12-19] MEDS: DEXT 5%/0.45% NACL 1000ML 1,000 ML IV SCH (02:08)
[2017-12-19] MEDS: LEVOFLOXACIN 500MG PREMIX 100 ML IV SCH (02:16)
[2017-12-19] MEDS: METRONIDAZOLE 500 MG PREMIX 100 ML IV SCH ×2 (05:28→13:14)
[2017-12-19] MEDS: SODIUM CHLORIDE 0.9% INJ 3ML FLUSH IVF SCH ×2 (05:28→13:14)
[2017-12-19] MEDS: ENOXAPARIN 40MG/0.4ML SYR SUBCUT SCH (08:46)
[2017-12-19] MEDS: PANTOPRAZOLE SODIUM 40 MG/VIAL IV SCH (08:46)
[2017-12-19] MEDS: MEGESTROL ACETATE 400 MG/10 ML UDC PO SCH (08:46)
[2017-12-19] MEDS: POTASSIUM CHLORIDE 20MEQ/PACKET PO SCH (08:47)
[2017-12-19] MEDS ORDERED: IPRA3AMP9 HHN (11:21)
[2017-12-19] MEDS ORDERED: MUC103 INH (11:21)
[2017-12-19] MEDS ORDERED: MEGE400O4 PO (11:21)
[2017-12-19 13:26] LABS: BASOPHILS % 0.2 % (0.0-2.0); EOSINOPHILS % 1.4 % (0.0-5.0); LYMPHOCYTES % 13.1 % (20.0-50.0); MEAN CORPUSCULAR HEMOGLOBIN 25.6 pg (28.0-32.0); MEAN CORPUSCULAR VOLUME 76.4 fL (81.0-99.0); MEAN PLATELET VOLUME 6.9 fl (7.4-10.4); MONOCYTES % 7.4 % (2.0-8.0); NEUTROPHILS % 77.9 % (40.0-76.0); PLATELET 201 x1000/uL (130-400); RED BLOOD CELL COUNT 3.14 mill/uL (4.2-5.4); RED CELL DISTRIBUTION WIDTH 16.2 % (11.6-14.6)
[2017-12-19 13:39] LABS: CHLORIDE 107 mEq/L (98-107)
[2017-12-19] MEDS ORDERED: CEFTRIAXONE 1 G PREMIX 50 ML IV SCH (15:00)
== END 2017-12-19 18:43 | DRG 871 ==
LOC: ER 23:01 → 7WST 12-11 05:47 → ENRESERV 12-11 07:22 → 7WST 12-11 09:22 → MICUSO 12-14 18:18 → 7WST 12-19
PROVIDERS: ADMIT Family Medicine; ATTEND Family Medicine
PROC: 3E1K78Z Irrigation of Genitourinary Tract using Irrigating Substance, Via Natural or Artificial Opening (ICD-10-PCS; 2017-12-11)
PROC: 0BH17EZ Insertion of Endotracheal Airway into Trachea, Via Natural or Artificial Opening (ICD-10-PCS; principal; 2017-12-14)
PROC: 5A1935Z Respiratory Ventilation, Less than 24 Consecutive Hours (ICD-10-PCS; 2017-12-14)
DX: A41.9 Sepsis, unspecified organism (principal); E43 Unspecified severe protein-calorie malnutrition; J96.01 Acute respiratory failure with hypoxia; J69.0 Pneumonitis due to inhalation of food and vomit; N39.0 Urinary tract infection, site not specified; E87.2 Acidosis; N32.89 Other specified disorders of bladder; I11.0 Hypertensive heart disease with heart failure; I50.9 Heart failure, unspecified; H91.90 Unspecified hearing loss, unspecified ear; N20.0 Calculus of kidney; D64.9 Anemia, unspecified; F03.90 Unspecified dementia, unspecified severity, without behavioral disturbance, psychotic disturbance, mood disturbance, and anxiety; H54.8 Legal blindness, as defined in USA; Z96.643 Presence of artificial hip joint, bilateral; Z87.442 Personal history of urinary calculi; Z87.440 Personal history of urinary (tract) infections; Z86.73 Personal history of transient ischemic attack (TIA), and cerebral infarction without residual deficits; Z68.22 Body mass index [BMI] 22.0-22.9, adult
CPT/HCPCS: 31500; 36415; 36600; 51702; 70450; 71045; 74176; 80053; 80061; 80305; 81003; 82375; 82805; 82962; 83880; 84478; 84484; 85025; 85379; 85610; 86850; 86900; 87086; 92610; 93005; 93306; 93970; 94002; 94640; 94667; 96365; 97162; 99285; C1893; C9113; J0330; J0696; J1650; J1940; J1956; J2704; J3480; J3490; J7040; J7042; J7050; J7060; J7608; J7620; P9047; A4315

== ENCOUNTER 2017-12-22 07:58 | Inpatient (IN) | payer MEDICARE, MEDICAID ==
[~2017-12-22] VITALS: Ht 154.9 cm; Wt 49.9 kg
[~2017-12-22 07:58] MED LIST changes: -ACET-2178 PO; -AMLO10TA4 PO; -ASPI-1159 PO; -CLON0.1T PO; -CRAN450T10 PO; -DEXT15DR5 EACHEYE; -DOCU-138 PO; -FLEET ENEMA RC; +IPRA3AMP9 HHN; -LEVO500T2 PO; +MEGE400O4 PO; -MEROPENEM IV; +MUC103 INH; -MULT-278 PO; -VIT D3 PO; -VITAMIN B COMPLEX PO; -[UNRECOGNIZED DRUG - OTHER] PO
[2017-12-22 09:14] LABS: BASOPHILS % 0.4 % (0.0-2.0); HEMATOCRIT. 26.8 % (36.0-48.0); HEMOGLOBIN. 8.8 g/dL (12.0-16.0); LYMPHOCYTES % 14.7 % (20.0-50.0); MEAN CORPUSCULAR HEMOGLOBIN 25.6 pg (28.0-32.0); MEAN CORPUSCULAR VOLUME 77.9 fL (81.0-99.0); MEAN PLATELET VOLUME 6.6 fl (7.4-10.4); MONOCYTES % 7.3 % (2.0-8.0); NEUTROPHILS % 75.6 % (40.0-76.0); PLATELET 244 x1000/uL (130-400); RED BLOOD CELL COUNT 3.44 mill/uL (4.2-5.4); RED CELL DISTRIBUTION WIDTH 16.5 % (11.6-14.6)
[2017-12-22 09:20] LABS: CHLORIDE 108 mEq/L (98-107); INR 1.4; PROTHROMBIN TIME 14.9 sec (9.4-11.6)
[2017-12-22 10:26] LABS: BG BASE EXCESS 3.5 mmol/L (-2.0-2.0); BG CARBOXYHEMOGLOBIN 0.2 % (0.5-1.5); BG DEOXYHEMOGLOBIN 4.2 % (0.0-5.0); BG FRACTION INSPIRED OXYGEN 28; BG HCO3 ACT 27.6 mmol/L (22.0-26.0); BG METHEMOGLOBIN 0.1 % (0.0-1.5); BG OXYGEN SATURATION 95.8 % (92.0-98.5); BG OXYHEMOGLOBIN 95.5 % (94.0-97.0); BG PCO2 39.6 mmHg (35.0-45.0); BG PH 7.461 (7.350-7.450); BG PO2 82.9 mmHg (75.0-100.0); BG SAMPLE SITE LEFT BRACHIAL; BG TOTAL HEMOGLOBIN 8.8 g/dL (12.0-18.0); BG VENT MODE NASAL CANNULA
[2017-12-22] MEDS ORDERED: FUROSEMIDE 20MG/2ML VIAL IVP ONE (10:30)
[2017-12-22 12:00] VITALS: BP 111/49
[2017-12-22] MEDS ORDERED: IPRATROPIUM/ALBUTEROL 0.5-3(2.5)MG/3ML NEB INH PRN (12:45)
[2017-12-22] MEDS ORDERED: ACETAMINOPHEN 650MG SUPP PR PRN (12:45)
[2017-12-22] MEDS ORDERED: ACETAMINOPHEN 325MG TABLET PO PRN (12:45)
[2017-12-22] MEDS ORDERED: ACETAMINOPHEN 650MG/20.3ML UDC GT PRN (12:45)
[2017-12-22] MEDS ORDERED: ONDANSETRON HCL 4MG/2ML VIAL IV PRN (12:45)
[2017-12-22] MEDS ORDERED: DIPHENHYDRAMINE 50MG/ML VIAL IV PRN (12:45)
[2017-12-22] MEDS ORDERED: CLONIDINE 0.1MG TABLET PO PRN (12:45)
[2017-12-22] MEDS ORDERED: NA PHOS,M-B/NA PHOS,DI-BA ENEMA 118ML PR PRN (12:45)
[2017-12-22] MEDS ORDERED: MAGNESIUM/ALUMINUM HYDROXIDE/SIMETHICONE 30ML UDC PO PRN (12:45)
[2017-12-22 13:27] VITALS: BP 111/50
[2017-12-22] MEDS: SODIUM CHLORIDE 0.9% INJ 3ML FLUSH IVF SCH ×2 (14:00→22:39)
[2017-12-22 16:00] VITALS: BP 112/59
[2017-12-22] MEDS: FUROSEMIDE 40MG/4ML VIAL IV SCH (16:07)
[2017-12-22 16:20] LABS: CREATINE KINASE 42 IU/L (26-192); CREATINE KINASE MB FRACTION 1.9 ng/mL (0.5-3.6)
[2017-12-22 18:14] LABS: CLARITY URINE CLOUDY (CLEAR); COLOR URINE YELLOW (YELLOW); KETONES URINE NEGATIVE (NEGATIVE); LEUKOCYTE ESTERASE URINE 3+ (NEGATIVE); NITRITE URINE POSITIVE (NEGATIVE); OCCULT BLOOD URINE 3+ (NEGATIVE); PROTEIN URINE NEGATIVE (NEGATIVE); SPECIFIC GRAVITY URINE 1.008 (1.005-1.030); UROBILINOGEN URINE 0.2 E.U./dL (0.2-1.0)
[2017-12-22 20:00] VITALS: BP 93/38
[2017-12-23] VITALS (7 sets, daily range): BP systolic 92–108; BP diastolic 34–54
[2017-12-23 00:03] LABS: CREATINE KINASE 40 IU/L (26-192)
[2017-12-23 00:04] LABS: CREATINE KINASE MB FRACTION 1.3 ng/mL (0.5-3.6)
[2017-12-23] MEDS: SODIUM CHLORIDE 0.9% INJ 3ML FLUSH IVF SCH ×3 (06:00→22:00)
[2017-12-23] MEDS: FUROSEMIDE 40MG/4ML VIAL IV SCH (09:59)
[2017-12-23] MEDS ORDERED: FURO-151 MT (12:26)
[2017-12-23 13:25] LABS: BASOPHILS % 0.9 % (0.0-2.0); EOSINOPHILS % 0.9 % (0.0-5.0); HEMATOCRIT. 28.9 % (36.0-48.0); HEMOGLOBIN. 9.4 g/dL (12.0-16.0); LYMPHOCYTES % 17.6 % (20.0-50.0); MEAN CORPUSCULAR HEMOGLOBIN 25.2 pg (28.0-32.0); MEAN CORPUSCULAR VOLUME 77.5 fL (81.0-99.0); MEAN PLATELET VOLUME 7.1 fl (7.4-10.4); MONOCYTES % 9.8 % (2.0-8.0); NEUTROPHILS % 70.8 % (40.0-76.0); PLATELET 293 x1000/uL (130-400); RED BLOOD CELL COUNT 3.72 mill/uL (4.2-5.4); RED CELL DISTRIBUTION WIDTH 16.6 % (11.6-14.6)
[2017-12-23 13:34] LABS: CHLORIDE 101 mEq/L (98-107)
[2017-12-23] MEDS: IPRATROPIUM/ALBUTEROL 0.5-3(2.5)MG/3ML NEB HHN SCH ×2 (17:00→22:23)
[2017-12-23] MEDS: ACETYLCYSTEINE 100MG/ML 10% VIAL 4ML INH SCH (17:00)
[2017-12-23] MEDS ORDERED: ALBUMIN HUMAN 25GM/100ML (25%) IV NR (23:30)
[2017-12-24] VITALS: BP 99/42
[2017-12-24] MEDS: IPRATROPIUM/ALBUTEROL 0.5-3(2.5)MG/3ML NEB HHN SCH ×5 (01:25→15:47)
[2017-12-24] MEDS: ACETYLCYSTEINE 100MG/ML 10% VIAL 4ML INH SCH ×3 (01:26→15:47)
[2017-12-24 04:00] VITALS: BP 107/55
[2017-12-24 09:36] VITALS: BP 104/40
[2017-12-24 14:40] VITALS: BP 106/44
[2017-12-24 17:02] VITALS: BP 113/47
== END 2017-12-24 17:25 | DRG 291 ==
LOC: ER 07:58 → 7WST 10:40 → EDBEDREQ 10:46 → ENRESERV 11:22
PROVIDERS: ADMIT Family Medicine; ATTEND Family Medicine
DX: I11.0 Hypertensive heart disease with heart failure (principal); J18.9 Pneumonia, unspecified organism; E43 Unspecified severe protein-calorie malnutrition; N39.0 Urinary tract infection, site not specified; J44.0 Chronic obstructive pulmonary disease with (acute) lower respiratory infection; D63.8 Anemia in other chronic diseases classified elsewhere; I50.33 Acute on chronic diastolic (congestive) heart failure; E55.9 Vitamin D deficiency, unspecified; F03.90 Unspecified dementia, unspecified severity, without behavioral disturbance, psychotic disturbance, mood disturbance, and anxiety; H54.8 Legal blindness, as defined in USA; H91.90 Unspecified hearing loss, unspecified ear; K21.9 Gastro-esophageal reflux disease without esophagitis; M81.0 Age-related osteoporosis without current pathological fracture; R13.10 Dysphagia, unspecified; Z96.649 Presence of unspecified artificial hip joint; R62.7 Adult failure to thrive; J44.9 Chronic obstructive pulmonary disease, unspecified; E78.5 Hyperlipidemia, unspecified; R31.9 Hematuria, unspecified; Z74.01 Bed confinement status; Z86.73 Personal history of transient ischemic attack (TIA), and cerebral infarction without residual deficits; Z87.440 Personal history of urinary (tract) infections; Z87.891 Personal history of nicotine dependence; Z87.81 Personal history of (healed) traumatic fracture; Z79.899 Other long term (current) drug therapy; Z79.82 Long term (current) use of aspirin; Z68.20 Body mass index [BMI] 20.0-20.9, adult
CPT/HCPCS: 36415; 36600; 51702; 71045; 80053; 81003; 82375; 82550; 82553; 82805; 83880; 84484; 85025; 85610; 87077; 87086; 87186; 92610; 93005; 94640; 96374; 99285; C1893; J1940; J7608; J7620; P9047; A4315

== ENCOUNTER 2018-04-21 15:00 | Inpatient (IN) | payer MEDICARE, OTHER ==
[~2018-04-21] VITALS: Ht 152.4 cm; Wt 51.7 kg
[~2018-04-21 15:00] MED LIST changes: +FURO-151 MT
[2018-04-21 20:00] VITALS: BP 141/54
[2018-04-21] MEDS ORDERED: MAGNESIUM/ALUMINUM HYDROXIDE/SIMETHICONE 30ML UDC PO PRN (20:30)
[2018-04-21] MEDS ORDERED: ACETAMINOPHEN 650MG/20.3ML UDC GT PRN (20:30)
[2018-04-21] MEDS ORDERED: NA PHOS,M-B/NA PHOS,DI-BA ENEMA 118ML PR PRN (20:30)
[2018-04-21] MEDS ORDERED: ONDANSETRON HCL 4MG/2ML INJ IV PRN (20:30)
[2018-04-21] MEDS ORDERED: ACETAMINOPHEN 650MG SUPP PR PRN (20:30)
[2018-04-21] MEDS ORDERED: IPRATROPIUM/ALBUTEROL 0.5-3(2.5)MG/3ML NEB INH PRN (20:30)
[2018-04-21] MEDS ORDERED: ACETAMINOPHEN 325MG TABLET PO PRN (20:30)
[2018-04-21 21:55] LABS: CHLORIDE 99 mEq/L (98-107)
[2018-04-21 21:58] LABS: BASOPHILS % 0.7 % (0.0-2.0); EOSINOPHILS % 2.3 % (0.0-5.0); HEMATOCRIT. 34.2 % (36.0-48.0); HEMOGLOBIN. 10.9 g/dL (12.0-16.0); LYMPHOCYTES % 25.9 % (20.0-50.0); MEAN CORPUSCULAR HEMOGLOBIN 22.7 pg (28.0-32.0); MEAN CORPUSCULAR VOLUME 71.4 fL (81.0-99.0); MEAN PLATELET VOLUME 7.1 fl (7.4-10.4); MONOCYTES % 12.4 % (2.0-8.0); NEUTROPHILS % 58.7 % (40.0-76.0); PLATELET 259 x1000/uL (130-400); RED BLOOD CELL COUNT 4.79 mill/uL (4.2-5.4); RED CELL DISTRIBUTION WIDTH 19.3 % (11.6-14.6)
[2018-04-21 22:02] LABS: CREATINE KINASE 25 IU/L (26-192); CREATINE KINASE MB FRACTION < 1.0 ng/mL (0.5-3.6)
[2018-04-21] MEDS: SODIUM CHLORIDE 0.45% 1,000 ML IV SCH (22:43)
[2018-04-21] MEDS: SODIUM CHLORIDE 0.9% INJ 3ML FLUSH IVF SCH (22:44)
[2018-04-22] VITALS: BP 174/65
[2018-04-22] MEDS: CLONIDINE 0.1MG TABLET PO PRN (01:00)
[2018-04-22 04:00] VITALS: BP 143/50
[2018-04-22] MEDS: SODIUM CHLORIDE 0.9% INJ 3ML FLUSH IVF SCH ×3 (06:00→20:25)
[2018-04-22 07:17] LABS: BASOPHILS % 0.7 % (0.0-2.0); EOSINOPHILS % 3.2 % (0.0-5.0); HEMATOCRIT. 33.3 % (36.0-48.0); HEMOGLOBIN. 10.7 g/dL (12.0-16.0); LYMPHOCYTES % 28.2 % (20.0-50.0); MEAN CORPUSCULAR VOLUME 71.2 fL (81.0-99.0); MONOCYTES % 11.8 % (2.0-8.0); NEUTROPHILS % 56.1 % (40.0-76.0); PLATELET 270 x1000/uL (130-400); RED BLOOD CELL COUNT 4.67 mill/uL (4.2-5.4); RED CELL DISTRIBUTION WIDTH 19.1 % (11.6-14.6)
[2018-04-22 07:53] LABS: CHLORIDE 100 mEq/L (98-107)
[2018-04-22 08:00] VITALS: BP 138/52
[2018-04-22 08:02] LABS: CREATINE KINASE 30 IU/L (26-192); CREATINE KINASE MB FRACTION < 1.0 ng/mL (0.5-3.6); HDL CHOLESTEROL 58 mg/dL (40-59); LDL CHOLESTEROL 106 mg/dL (5-100)
[2018-04-22 12:00] VITALS: BP 125/39
[2018-04-22 16:00] VITALS: BP 139/52
[2018-04-22] MEDS: SODIUM CHLORIDE 0.45% 1,000 ML IV SCH (17:02)
[2018-04-22 17:49] LABS: VITAMIN B12 SERUM 294 pg/mL (211-911)
[2018-04-22 20:00] VITALS: BP 141/55
[2018-04-23] VITALS: BP 150/60
[2018-04-23 04:00] VITALS: BP 156/63
[2018-04-23] MEDS: SODIUM CHLORIDE 0.9% INJ 3ML FLUSH IVF SCH ×3 (05:16→22:00)
[2018-04-23] MEDS: CLONIDINE 0.1MG TABLET PO PRN (07:58)
[2018-04-23 08:00] VITALS: BP 166/62
[2018-04-23] MEDS: MEGESTROL ACETATE 400 MG/10 ML UDC PO SCH (08:03)
[2018-04-23 12:00] VITALS: BP 98/39
[2018-04-23 16:30] VITALS: BP 113/47
[2018-04-23] MEDS: SODIUM CHLORIDE 0.45% 1,000 ML IV SCH (18:48)
[2018-04-23 20:16] VITALS: BP 111/52
[2018-04-24] VITALS: BP 115/60
[2018-04-24 04:00] VITALS: BP 146/59
[2018-04-24] MEDS: SODIUM CHLORIDE 0.9% INJ 3ML FLUSH IVF SCH ×2 (05:36→14:36)
[2018-04-24] MEDS: MEGESTROL ACETATE 400 MG/10 ML UDC PO SCH (08:37)
[2018-04-24 12:00] VITALS: BP 124/48
[2018-04-24 16:00] VITALS: BP 123/50
[2018-04-24 16:24] LABS: CLARITY URINE CLOUDY (CLEAR); COLOR URINE YELLOW (YELLOW); KETONES URINE NEGATIVE (NEGATIVE); LEUKOCYTE ESTERASE URINE 3+ (NEGATIVE); NITRITE URINE NEGATIVE (NEGATIVE); OCCULT BLOOD URINE TRACE (NEGATIVE); PH URINE 7.5 (4.5-8.0); PROTEIN URINE NEGATIVE (NEGATIVE); SPECIFIC GRAVITY URINE 1.007 (1.005-1.030); UROBILINOGEN URINE 0.2 E.U./dL (0.2-1.0)
[2018-04-24 16:43] LABS: BASOPHILS % 0.4 % (0.0-2.0); EOSINOPHILS % 2.9 % (0.0-5.0); HEMATOCRIT. 29.6 % (36.0-48.0); HEMOGLOBIN. 9.6 g/dL (12.0-16.0); LYMPHOCYTES % 24.8 % (20.0-50.0); MEAN CORPUSCULAR HEMOGLOBIN 23.1 pg (28.0-32.0); MEAN CORPUSCULAR VOLUME 71.5 fL (81.0-99.0); MEAN PLATELET VOLUME 7.3 fl (7.4-10.4); MONOCYTES % 10.9 % (2.0-8.0); PLATELET 256 x1000/uL (130-400); RED BLOOD CELL COUNT 4.14 mill/uL (4.2-5.4); RED CELL DISTRIBUTION WIDTH 18.9 % (11.6-14.6)
[2018-04-24 16:52] LABS: CHLORIDE 103 mEq/L (98-107)
[2018-04-24] MEDS ORDERED: AMPI250V3 PO (17:18)
[2018-04-24 17:42] VITALS: BP 123/50
== END 2018-04-24 19:10 | DRG 640 ==
LOC: 8WST 15:00
PROVIDERS: ADMIT Family Medicine; ATTEND Family Medicine
DX: E87.1 Hypo-osmolality and hyponatremia (principal); E43 Unspecified severe protein-calorie malnutrition; N39.0 Urinary tract infection, site not specified; R62.7 Adult failure to thrive; J44.9 Chronic obstructive pulmonary disease, unspecified; I50.9 Heart failure, unspecified; E86.0 Dehydration; Z68.22 Body mass index [BMI] 22.0-22.9, adult; H54.8 Legal blindness, as defined in USA; D63.8 Anemia in other chronic diseases classified elsewhere; E78.5 Hyperlipidemia, unspecified; F03.90 Unspecified dementia, unspecified severity, without behavioral disturbance, psychotic disturbance, mood disturbance, and anxiety; G31.9 Degenerative disease of nervous system, unspecified; H91.90 Unspecified hearing loss, unspecified ear; Z96.649 Presence of unspecified artificial hip joint; I11.0 Hypertensive heart disease with heart failure; Z74.01 Bed confinement status; Z86.73 Personal history of transient ischemic attack (TIA), and cerebral infarction without residual deficits; Z87.440 Personal history of urinary (tract) infections; Z87.81 Personal history of (healed) traumatic fracture
CPT/HCPCS: 36415; 71045; 80061; 82550; 82553; 82607; 84443; 84484; 87077; 87186; 92610; C1893

== ENCOUNTER 2019-12-25 01:51 | Inpatient (IN) | payer MEDICARE, MEDICAID ==
[~2019-12-25] VITALS: Ht 152.4 cm; Wt 61.2 kg
[2019-12-25] VITALS (57 sets, daily range): BP systolic 74–161; BP diastolic 24–81
[~2019-12-25 01:51] MED LIST changes: +AMPI250V3 PO; +GABA-529 PO; +MEMA5TAB7 PO; +MERO500V IV; +NITR100C MT
[2019-12-25] MEDS ORDERED: NOREPINEPHRINE 4 MG in DEXT 5% WATER 250 ML IV STA (02:11)
[2019-12-25] MEDS ORDERED: ONDANSETRON HCL 4MG/2ML INJ IV STA (02:11)
[2019-12-25] MEDS ORDERED: ACETAMINOPHEN 650MG SUPP PR STA (02:11)
[2019-12-25] MEDS ORDERED: PROPOFOL 10MG/ML 100ML 100 ML IV ONE (02:15)
[2019-12-25] MEDS ORDERED: VECURONIUM BROMIDE 10 MG/VIAL IV ONE (02:15)
[2019-12-25] MEDS ORDERED: VANCOMYCIN 1 G PREMIX 200 ML IV ONE (02:15)
[2019-12-25] MEDS ORDERED: PIPERACILLIN/TAZ 3.375G PREMIX 50 ML IV ONE (02:15)
[2019-12-25] MEDS ORDERED: SODIUM CHLORIDE 0.9% 1000ML BAG (SEPSIS BOLUS) IV ONE (02:15)
[2019-12-25] MEDS ORDERED: NOREPINEPHRINE 4MG/250ML PMX 250 ML IV STA (02:35)
[2019-12-25] MEDS ORDERED: NOREPINEPHRINE 4MG/250ML PMX 250 ML IV SCH (02:45)
[2019-12-25 03:32] LABS: CHLORIDE 126 mEq/L (98-107)
[2019-12-25 03:33] LABS: BASOPHILS % 0.3 % (0.0-2.0); EOSINOPHILS % 0.4 % (0.0-5.0); HEMATOCRIT. 40.8 % (36.0-48.0); HEMOGLOBIN. 12.9 g/dL (12.0-16.0); LYMPHOCYTES % 12.4 % (20.0-50.0); MEAN CORPUSCULAR HEMOGLOBIN 26.9 pg (28.0-32.0); MEAN CORPUSCULAR VOLUME 84.9 fL (81.0-99.0); MEAN PLATELET VOLUME 9.2 fl (7.4-10.4); MONOCYTES % 6.7 % (2.0-8.0); NEUTROPHILS % 80.2 % (40.0-76.0); PLATELET 236 x1000/uL (130-400); RED CELL DISTRIBUTION WIDTH 16.7 % (11.6-14.6)
[2019-12-25 03:50] LABS: BG BASE EXCESS 1.1 mmol/L (-2.0-2.0); BG CARBOXYHEMOGLOBIN 0.5 % (0.5-1.5); BG DEOXYHEMOGLOBIN 0.7 % (0.0-5.0); BG FRACTION INSPIRED OXYGEN 50; BG HCO3 ACT 25.8 mmol/L (22.0-26.0); BG OXYGEN SATURATION 99.3 % (92.0-98.5); BG OXYHEMOGLOBIN 98.8 % (94.0-97.0); BG PCO2 41.3 mmHg (35.0-45.0); BG PH 7.414 (7.350-7.450); BG PO2 167.5 mmHg (75.0-100.0); BG SAMPLE SITE LEFT RADIAL; BG TIDAL VOLUME(mL) 400 mL; BG TOTAL HEMOGLOBIN 12.1 g/dL (12.0-18.0); BG VENT MODE VENT - A/C; BG VENT RATE 16 set
[2019-12-25 04:03] LABS: INR 1.2
[2019-12-25 05:10] LABS: CLARITY URINE TURBID (CLEAR); COLOR URINE DARK YELLOW (YELLOW); KETONES URINE TRACE (NEGATIVE); LEUKOCYTE ESTERASE URINE 3+ (NEGATIVE); NITRITE URINE POSITIVE (NEGATIVE); OCCULT BLOOD URINE 3+ (NEGATIVE); PH URINE 6.5 (4.5-8.0); PROTEIN URINE 2+ (NEGATIVE); SPECIFIC GRAVITY URINE 1.021 (1.005-1.030)
[2019-12-25] MEDS ORDERED: ONDANSETRON HCL 4MG/2ML INJ IV PRN (08:00)
[2019-12-25] MEDS ORDERED: AZITHROMYCIN 500 MG in DEXT 5% WATER 250 ML IV SCH (08:00)
[2019-12-25] MEDS ORDERED: DIPHENHYDRAMINE 50MG/ML VIAL IV PRN (08:00)
[2019-12-25] MEDS ORDERED: PIPERACILLIN/TAZOBACTAM 2.25 G in DEXTROSE 5% WATER 50 ML IV SCH (08:00)
[2019-12-25] MEDS ORDERED: MAGNESIUM/ALUMINUM HYDROXIDE/SIMETHICONE 30ML UDC PO PRN (08:00)
[2019-12-25] MEDS ORDERED: CLONIDINE 0.1MG TABLET PO PRN (08:00)
[2019-12-25] MEDS ORDERED: DOCUSATE SODIUM 100MG CAPSULE PO PRN (08:00)
[2019-12-25] MEDS ORDERED: NA PHOS,M-B/NA PHOS,DI-BA ENEMA 118ML PR PRN (08:00)
[2019-12-25 08:29] LABS: BASOPHILS % 0.3 % (0.0-2.0); EOSINOPHILS % 0.2 % (0.0-5.0); HEMATOCRIT. 38.5 % (36.0-48.0); HEMOGLOBIN. 12.2 g/dL (12.0-16.0); LYMPHOCYTES % 15.3 % (20.0-50.0); MEAN CORPUSCULAR HEMOGLOBIN 26.7 pg (28.0-32.0); MEAN CORPUSCULAR VOLUME 84.6 fL (81.0-99.0); MEAN PLATELET VOLUME 8.9 fl (7.4-10.4); MONOCYTES % 6.3 % (2.0-8.0); NEUTROPHILS % 77.9 % (40.0-76.0); PLATELET 237 x1000/uL (130-400); RED BLOOD CELL COUNT 4.55 mill/uL (4.2-5.4); RED CELL DISTRIBUTION WIDTH 16.5 % (11.6-14.6)
[2019-12-25] MEDS ORDERED: NOREPINEPHRINE 4MG/250ML PMX 250 ML IV NR (08:30)
[2019-12-25 08:34] LABS: BG BASE EXCESS -0.9 mmol/L (-2.0-2.0); BG CARBOXYHEMOGLOBIN 0.8 % (0.5-1.5); BG FRACTION INSPIRED OXYGEN 40; BG HCO3 ACT 23.9 mmol/L (22.0-26.0); BG METHEMOGLOBIN 0.3 % (0.0-1.5); BG OXYGEN SATURATION 94.9 % (92.0-98.5); BG OXYHEMOGLOBIN 93.9 % (94.0-97.0); BG PCO2 40.1 mmHg (35.0-45.0); BG PH 7.393 (7.350-7.450); BG PO2 74.9 mmHg (75.0-100.0); BG SAMPLE SITE RIGHT RADIAL; BG TIDAL VOLUME(mL) 400 mL; BG TOTAL HEMOGLOBIN 12.3 g/dL (12.0-18.0); BG VENT MODE VENT - A/C; BG VENT RATE 16 set
[2019-12-25 08:35] LABS: CHLORIDE 125 mEq/L (98-107)
[2019-12-25 08:50] LABS: INR 1.4; PROTHROMBIN TIME 14.3 sec (9.6-11.0)
[2019-12-25] MEDS: PANTOPRAZOLE SODIUM 40 MG/VIAL IV SCH (10:36)
[2019-12-25] MEDS: ENOXAPARIN 30MG/0.3ML SYR SUBCUT SCH (10:36)
[2019-12-25] MEDS: DEXTROSE 5% WATER 1,000 ML IV SCH ×2 (10:37→20:21)
[2019-12-25] MEDS: PIPERACILLIN/TAZOBACTAM 2.25 G in DEXTROSE 5% WATER 50 ML IV SCH ×2 (13:55→20:24)
[2019-12-25] MEDS ORDERED: PROPOFOL 10MG/ML 100ML 100 ML IV PRN (15:30)
[2019-12-25 17:09] LABS: CREATINE KINASE 52 IU/L (26-192)
[2019-12-25 17:10] LABS: CREATINE KINASE MB FRACTION 1.1 ng/mL (0.5-3.6)
[2019-12-25] MEDS: NOREPINEPHRINE 4 MG in DEXTROSE 5% WATER 250 ML IV PRN (18:29)
[2019-12-25] MEDS: VANCOMYCIN 750 MG PREMIX 150 ML IV SCH (21:41)
[2019-12-25] MEDS ORDERED: VANCOMYCIN 750 MG PREMIX 150 ML IV SCH (22:00)
[2019-12-25 23:40] LABS: CREATINE KINASE 33 IU/L (26-192)
[2019-12-25 23:41] LABS: CREATINE KINASE MB FRACTION < 1.0 ng/mL (0.5-3.6)
[2019-12-26] VITALS (96 sets, daily range): BP systolic 70–161; BP diastolic 30–93
[2019-12-26] MEDS: NOREPINEPHRINE 4 MG in DEXTROSE 5% WATER 250 ML IV PRN (01:08)
[2019-12-26] MEDS: PIPERACILLIN/TAZOBACTAM 2.25 G in DEXTROSE 5% WATER 50 ML IV SCH ×4 (02:02→20:17)
[2019-12-26 05:17] LABS: BASOPHILS % 0.5 % (0.0-2.0); EOSINOPHILS % 2.4 % (0.0-5.0); HEMATOCRIT. 33.2 % (36.0-48.0); HEMOGLOBIN. 10.6 g/dL (12.0-16.0); LYMPHOCYTES % 17.8 % (20.0-50.0); MEAN CORPUSCULAR HEMOGLOBIN 26.9 pg (28.0-32.0); MEAN CORPUSCULAR VOLUME 84.1 fL (81.0-99.0); MEAN PLATELET VOLUME 9.2 fl (7.4-10.4); MONOCYTES % 6.6 % (2.0-8.0); NEUTROPHILS % 72.7 % (40.0-76.0); PLATELET 166 x1000/uL (130-400); RED BLOOD CELL COUNT 3.94 mill/uL (4.2-5.4); RED CELL DISTRIBUTION WIDTH 16.1 % (11.6-14.6)
[2019-12-26 05:22] LABS: CHLORIDE 111 mEq/L (98-107)
[2019-12-26 05:29] LABS: LDL CHOLESTEROL 38 mg/dL (5-100)
[2019-12-26 05:31] LABS: HDL CHOLESTEROL 39 mg/dL (40-59)
[2019-12-26 08:36] LABS: BG BASE EXCESS -0.9 mmol/L (-2.0-2.0); BG CARBOXYHEMOGLOBIN 0.3 % (0.5-1.5); BG DEOXYHEMOGLOBIN 1.3 % (0.0-5.0); BG FRACTION INSPIRED OXYGEN 40; BG HCO3 ACT 21.7 mmol/L (22.0-26.0); BG OXYGEN SATURATION 98.7 % (92.0-98.5); BG OXYHEMOGLOBIN 97.4 % (94.0-97.0); BG PCO2 28.7 mmHg (35.0-45.0); BG PH 7.496 (7.350-7.450); BG PO2 151.8 mmHg (75.0-100.0); BG SAMPLE SITE RIGHT BRACHIAL; BG TIDAL VOLUME(mL) 400 mL; BG TOTAL HEMOGLOBIN 10.1 g/dL (12.0-18.0); BG VENT MODE VENT - A/C; BG VENT RATE 16 set
[2019-12-26] MEDS: IPRATROPIUM/ALBUTEROL 0.5-3(2.5)MG/3ML NEB HHN SCH ×3 (08:50→20:30)
[2019-12-26] MEDS: PANTOPRAZOLE SODIUM 40 MG/VIAL IV SCH (08:50)
[2019-12-26] MEDS: ENOXAPARIN 30MG/0.3ML SYR SUBCUT SCH (08:51)
[2019-12-26] MEDS: AZITHROMYCIN 500 MG in DEXT 5% WATER 250 ML IV SCH (08:51)
[2019-12-26] MEDS: DEXTROSE 5% WATER 1,000 ML IV SCH ×2 (08:53→22:10)
[2019-12-26] MEDS: VANCOMYCIN 750 MG PREMIX 150 ML IV SCH (18:13)
[2019-12-27] VITALS (79 sets, daily range): BP systolic 43–170; BP diastolic 20–151
[2019-12-27] MEDS: DEXTROSE 5% WATER 1,000 ML IV SCH ×2 (00:29→14:07)
[2019-12-27] MEDS: PIPERACILLIN/TAZOBACTAM 2.25 G in DEXTROSE 5% WATER 50 ML IV SCH ×4 (00:49→21:00)
[2019-12-27] MEDS: IPRATROPIUM/ALBUTEROL 0.5-3(2.5)MG/3ML NEB HHN SCH ×2 (01:07→20:25)
[2019-12-27 06:10] LABS: CHLORIDE 107 mEq/L (98-107)
[2019-12-27 07:45] LABS: BASOPHILS % 0.2 % (0.0-2.0); EOSINOPHILS % 2.2 % (0.0-5.0); HEMATOCRIT. 30.4 % (36.0-48.0); HEMOGLOBIN. 9.8 g/dL (12.0-16.0); LYMPHOCYTES % 14.3 % (20.0-50.0); MEAN CORPUSCULAR HEMOGLOBIN 27.1 pg (28.0-32.0); MEAN CORPUSCULAR VOLUME 83.5 fL (81.0-99.0); MEAN PLATELET VOLUME 9.8 fl (7.4-10.4); MONOCYTES % 6.9 % (2.0-8.0); NEUTROPHILS % 76.4 % (40.0-76.0); PLATELET 153 x1000/uL (130-400); RED BLOOD CELL COUNT 3.64 mill/uL (4.2-5.4); RED CELL DISTRIBUTION WIDTH 15.8 % (11.6-14.6)
[2019-12-27 08:20] LABS: BG BASE EXCESS 0.6 mmol/L (-2.0-2.0); BG DEOXYHEMOGLOBIN 0.8 % (0.0-5.0); BG HCO3 ACT 24.2 mmol/L (22.0-26.0); BG METHEMOGLOBIN 0.3 % (0.0-1.5); BG OXYGEN SATURATION 99.2 % (92.0-98.5); BG OXYHEMOGLOBIN 98.9 % (94.0-97.0); BG PCO2 34.6 mmHg (35.0-45.0); BG PH 7.462 (7.350-7.450); BG PO2 141.1 mmHg (75.0-100.0); BG SAMPLE SITE RIGHT BRACHIAL; BG TIDAL VOLUME(mL) 400 mL; BG TOTAL HEMOGLOBIN 9.6 g/dL (12.0-18.0); BG VENT MODE VENT - A/C; BG VENT RATE 12 set
[2019-12-27] MEDS: PANTOPRAZOLE SODIUM 40 MG/VIAL IV SCH (08:30)
[2019-12-27] MEDS: AZITHROMYCIN 500 MG in DEXT 5% WATER 250 ML IV SCH (08:30)
[2019-12-27] MEDS: ENOXAPARIN 30MG/0.3ML SYR SUBCUT SCH (08:31)
[2019-12-27] MEDS: VANCOMYCIN 750 MG PREMIX 150 ML IV SCH (10:37)
[2019-12-27] MEDS: MIDODRINE HCL 5MG TABLET PO SCH (14:07)
[2019-12-27] MEDS: NOREPINEPHRINE 4 MG in DEXTROSE 5% WATER 250 ML IV PRN (14:07)
[2019-12-27] MEDS: ACETYLCYSTEINE 100MG/ML 10% VIAL 4ML INH SCH (20:25)
[2019-12-27] MEDS: LORAZEPAM 2MG/ML CPJ IV PRN (22:46)
[2019-12-28] VITALS (90 sets, daily range): BP systolic 77–162; BP diastolic 28–84
[2019-12-28] MEDS: PIPERACILLIN/TAZOBACTAM 2.25 G in DEXTROSE 5% WATER 50 ML IV SCH ×4 (02:04→20:02)
[2019-12-28] MEDS: VANCOMYCIN 500 MG PREMIX 100 ML IV SCH ×2 (02:04→15:16)
[2019-12-28] MEDS: NOREPINEPHRINE 4 MG in DEXTROSE 5% WATER 250 ML IV PRN ×3 (02:06→21:03)
[2019-12-28] MEDS: DEXTROSE 5% WATER 1,000 ML IV SCH ×2 (02:10→19:25)
[2019-12-28 05:00] LABS: HEMOGLOBIN 11.2 g/dL (12.0-16.0); MEAN CORPUSCULAR HEMOGLOBIN 27.6 pg (28.0-32.0); MEAN CORPUSCULAR VOLUME 83.4 fL (81.0-99.0); PLATELET 188 x1000/uL (130-400); RED BLOOD CELL COUNT 4.08 mill/uL (4.2-5.4); RED CELL DISTRIBUTION WIDTH 15.6 % (11.6-14.6)
[2019-12-28 05:09] LABS: CHLORIDE 108 mEq/L (98-107)
[2019-12-28] MEDS: IPRATROPIUM/ALBUTEROL 0.5-3(2.5)MG/3ML NEB HHN SCH ×3 (08:20→20:47)
[2019-12-28] MEDS: ACETYLCYSTEINE 100MG/ML 10% VIAL 4ML INH SCH ×2 (08:20→13:55)
[2019-12-28] MEDS: PANTOPRAZOLE SODIUM 40 MG/VIAL IV SCH (08:35)
[2019-12-28] MEDS: ENOXAPARIN 30MG/0.3ML SYR SUBCUT SCH (08:36)
[2019-12-28] MEDS: AZITHROMYCIN 500 MG in DEXT 5% WATER 250 ML IV SCH (08:36)
[2019-12-28] MEDS: MIDODRINE HCL 5MG TABLET PO SCH ×3 (08:37→16:14)
[2019-12-28 09:18] LABS: BG BASE EXCESS -0.6 mmol/L (-2.0-2.0); BG CARBOXYHEMOGLOBIN 0.3 % (0.5-1.5); BG DEOXYHEMOGLOBIN 1.1 % (0.0-5.0); BG FRACTION INSPIRED OXYGEN 30; BG HCO3 ACT 23.6 mmol/L (22.0-26.0); BG METHEMOGLOBIN 0.3 % (0.0-1.5); BG OXYGEN SATURATION 98.9 % (92.0-98.5); BG OXYHEMOGLOBIN 98.3 % (94.0-97.0); BG PCO2 37.1 mmHg (35.0-45.0); BG PH 7.421 (7.350-7.450); BG PO2 143.3 mmHg (75.0-100.0); BG PRESSURE SUPPORT 12; BG SAMPLE SITE RIGHT RADIAL; BG TIDAL VOLUME(mL) 400 mL; BG TOTAL HEMOGLOBIN 10.6 g/dL (12.0-18.0); BG VENT MODE VENT - SIMV; BG VENT RATE 8 set
[2019-12-28 12:40] LABS: BG BASE EXCESS 0.8 mmol/L (-2.0-2.0); BG CARBOXYHEMOGLOBIN 0.1 % (0.5-1.5); BG DEOXYHEMOGLOBIN 2.9 % (0.0-5.0); BG FRACTION INSPIRED OXYGEN 40; BG HCO3 ACT 25.6 mmol/L (22.0-26.0); BG METHEMOGLOBIN 0.3 % (0.0-1.5); BG OXYGEN SATURATION 97.1 % (92.0-98.5); BG OXYHEMOGLOBIN 96.7 % (94.0-97.0); BG PCO2 41.9 mmHg (35.0-45.0); BG PH 7.404 (7.350-7.450); BG PO2 86.6 mmHg (75.0-100.0); BG PRESSURE SUPPORT 8; BG SAMPLE SITE RIGHT RADIAL; BG TOTAL HEMOGLOBIN 10.8 g/dL (12.0-18.0); BG VENT MODE VENT - CPAP
[2019-12-28] MEDS ORDERED: POTASSIUM CHLORIDE INJ 40 MEQ in DEXT 5% WATER 250 ML IV NR (23:00)
[2019-12-29] VITALS (89 sets, daily range): BP systolic 84–167; BP diastolic 22–81
[2019-12-29] MEDS: IPRATROPIUM/ALBUTEROL 0.5-3(2.5)MG/3ML NEB HHN SCH ×4 (02:16→20:36)
[2019-12-29] MEDS: VANCOMYCIN 500 MG PREMIX 100 ML IV SCH ×2 (02:22→15:20)
[2019-12-29] MEDS: PIPERACILLIN/TAZOBACTAM 2.25 G in DEXTROSE 5% WATER 50 ML IV SCH ×4 (02:22→20:30)
[2019-12-29] MEDS: LORAZEPAM 2MG/ML CPJ IV PRN (02:37)
[2019-12-29] MEDS: DEXTROSE 5% WATER 1,000 ML IV SCH ×2 (05:42→13:54)
[2019-12-29] MEDS: NOREPINEPHRINE 4 MG in DEXTROSE 5% WATER 250 ML IV PRN (07:37)
[2019-12-29] MEDS: ACETYLCYSTEINE 100MG/ML 10% VIAL 4ML INH SCH ×2 (07:50→13:05)
[2019-12-29] MEDS: AZITHROMYCIN 500 MG in DEXT 5% WATER 250 ML IV SCH (08:48)
[2019-12-29] MEDS: ENOXAPARIN 30MG/0.3ML SYR SUBCUT SCH (08:51)
[2019-12-29] MEDS: MIDODRINE HCL 5MG TABLET PO SCH ×2 (08:51→13:00)
[2019-12-29] MEDS: PANTOPRAZOLE SODIUM 40 MG/VIAL IV SCH (08:51)
[2019-12-30] VITALS (88 sets, daily range): BP systolic 84–150; BP diastolic 34–89
[2019-12-30] MEDS: ACETYLCYSTEINE 100MG/ML 10% VIAL 4ML INH SCH (01:45)
[2019-12-30] MEDS: IPRATROPIUM/ALBUTEROL 0.5-3(2.5)MG/3ML NEB HHN SCH ×4 (01:45→21:20)
[2019-12-30] MEDS: VANCOMYCIN 500 MG PREMIX 100 ML IV SCH (01:58)
[2019-12-30] MEDS: PIPERACILLIN/TAZOBACTAM 2.25 G in DEXTROSE 5% WATER 50 ML IV SCH (02:53)
[2019-12-30] MEDS: DEXTROSE 5% WATER 1,000 ML IV SCH ×2 (06:30→21:44)
[2019-12-30] MEDS: MIDODRINE HCL 5MG TABLET PO SCH ×3 (09:00→17:00)
[2019-12-30] MEDS: ENOXAPARIN 30MG/0.3ML SYR SUBCUT SCH (10:03)
[2019-12-30] MEDS: PANTOPRAZOLE SODIUM 40 MG/VIAL IV SCH (10:03)
[2019-12-30 11:24] LABS: BASOPHILS % 0.3 % (0.0-2.0); EOSINOPHILS % 1.3 % (0.0-5.0); HEMATOCRIT. 32.3 % (36.0-48.0); HEMOGLOBIN. 10.7 g/dL (12.0-16.0); LYMPHOCYTES % 14.8 % (20.0-50.0); MEAN CORPUSCULAR HEMOGLOBIN 27.2 pg (28.0-32.0); MEAN PLATELET VOLUME 8.7 fl (7.4-10.4); MONOCYTES % 7.1 % (2.0-8.0); NEUTROPHILS % 76.5 % (40.0-76.0); PLATELET 182 x1000/uL (130-400); RED BLOOD CELL COUNT 3.94 mill/uL (4.2-5.4); RED CELL DISTRIBUTION WIDTH 15.4 % (11.6-14.6)
[2019-12-30 11:27] LABS: INR 1.3; PROTHROMBIN TIME 13.5 sec (9.6-11.0)
[2019-12-30 12:53] LABS: CHLORIDE 104 mEq/L (98-107)
[2019-12-30] MEDS: NOREPINEPHRINE 4 MG in DEXTROSE 5% WATER 250 ML IV PRN ×2 (13:20→19:07)
[2019-12-30] MEDS: LORAZEPAM 2MG/ML CPJ IV PRN (14:59)
[2019-12-30] MEDS ORDERED: VANCOMYCIN 750 MG PREMIX 150 ML IV SCH (21:00)
[2019-12-31] VITALS (95 sets, daily range): BP systolic 51–141; BP diastolic 17–84
[2019-12-31] MEDS: IPRATROPIUM/ALBUTEROL 0.5-3(2.5)MG/3ML NEB HHN SCH ×4 (01:57→20:54)
[2019-12-31] MEDS: ACETYLCYSTEINE 100MG/ML 10% VIAL 4ML INH SCH ×2 (02:43→08:39)
[2019-12-31] MEDS: NOREPINEPHRINE 4 MG in DEXTROSE 5% WATER 250 ML IV PRN (06:14)
[2019-12-31] MEDS: MIDODRINE HCL 5MG TABLET PO SCH ×3 (09:00→17:00)
[2019-12-31] MEDS: ENOXAPARIN 30MG/0.3ML SYR SUBCUT SCH (09:24)
[2019-12-31] MEDS: PANTOPRAZOLE SODIUM 40 MG/VIAL IV SCH (09:24)
[2019-12-31] MEDS: DEXTROSE 5% WATER 1,000 ML IV SCH (10:42)
[2020-01-01] VITALS (98 sets, daily range): BP systolic 73–155; BP diastolic 20–94
[2020-01-01] MEDS: IPRATROPIUM/ALBUTEROL 0.5-3(2.5)MG/3ML NEB HHN SCH ×4 (02:24→16:49)
[2020-01-01] MEDS: NOREPINEPHRINE 4 MG in DEXTROSE 5% WATER 250 ML IV PRN (03:00)
[2020-01-01] MEDS: DEXTROSE 5% WATER 1,000 ML IV SCH ×2 (03:00→12:30)
[2020-01-01] MEDS: MIDODRINE HCL 5MG TABLET PO SCH ×3 (08:22→15:26)
[2020-01-01] MEDS: PANTOPRAZOLE SODIUM 40 MG/VIAL IV SCH ×2 (08:23→22:26)
[2020-01-01] MEDS: ENOXAPARIN 30MG/0.3ML SYR SUBCUT SCH (08:23)
[2020-01-01] MEDS: ACETYLCYSTEINE 100MG/ML 10% VIAL 4ML INH SCH (08:32)
[2020-01-02] VITALS (39 sets, daily range): BP systolic 82–160; BP diastolic 36–78
[2020-01-02] MEDS: DEXTROSE 5% WATER 1,000 ML IV SCH ×2 (03:09→18:45)
[2020-01-02 05:42] LABS: CHLORIDE 106 mEq/L (98-107)
[2020-01-02 05:45] LABS: INR 1.3; PARTIAL THROMBOPLASTIN TIME 39.6 sec (23.4-31.0); PROTHROMBIN TIME 13.8 sec (9.6-11.0)
[2020-01-02 06:08] LABS: BASOPHILS % 0.7 % (0.0-2.0); EOSINOPHILS % 3.1 % (0.0-5.0); HEMATOCRIT. 30.1 % (36.0-48.0); HEMOGLOBIN. 9.8 g/dL (12.0-16.0); LYMPHOCYTES % 28.5 % (20.0-50.0); MEAN CORPUSCULAR VOLUME 82.4 fL (81.0-99.0); MEAN PLATELET VOLUME 7.7 fl (7.4-10.4); MONOCYTES % 11.7 % (2.0-8.0); PLATELET 195 x1000/uL (130-400); RED BLOOD CELL COUNT 3.65 mill/uL (4.2-5.4); RED CELL DISTRIBUTION WIDTH 15.6 % (11.6-14.6)
[2020-01-02] MEDS: MIDODRINE HCL 5MG TABLET PO SCH ×3 (09:00→17:00)
[2020-01-02] MEDS: PANTOPRAZOLE SODIUM 40 MG/VIAL IV SCH ×2 (10:32→21:38)
[2020-01-02] MEDS ORDERED: CEFAZOLIN 1000MG PREMIX 50 ML IV ONE (14:00)
[2020-01-02] MEDS: IPRATROPIUM/ALBUTEROL 0.5-3(2.5)MG/3ML NEB HHN SCH (14:43)
[2020-01-02] MEDS ORDERED: FENTANYL CITRATE/PF 50MCG/ML 2ML VIAL ONE (16:46)
[2020-01-02] MEDS ORDERED: MIDAZOLAM HCL 5 MG/5 ML VIAL ONE (16:46)
[2020-01-02] MEDS ORDERED: MIDAZOLAM HCL 5 MG/5 ML VIAL IV PRN (17:10)
[2020-01-03] VITALS (15 sets, daily range): BP systolic 67–141; BP diastolic 36–72
[2020-01-03] MEDS: DEXTROSE 5% WATER 1,000 ML IV SCH ×2 (03:39→21:29)
[2020-01-03] MEDS: MIDODRINE HCL 5MG TABLET PO SCH ×4 (09:00→17:00)
[2020-01-03] MEDS: PANTOPRAZOLE SODIUM 40 MG/VIAL IV SCH ×2 (09:10→21:28)
[2020-01-03] MEDS: IPRATROPIUM/ALBUTEROL 0.5-3(2.5)MG/3ML NEB HHN SCH ×3 (09:55→20:42)
[2020-01-04] VITALS: BP 99/56
[2020-01-04] MEDS: IPRATROPIUM/ALBUTEROL 0.5-3(2.5)MG/3ML NEB HHN SCH ×4 (00:50→21:18)
[2020-01-04 04:00] VITALS: BP 92/51
[2020-01-04] MEDS ORDERED: SODIUM CHLORIDE 0.9% 500 ML IV NR (05:15)
[2020-01-04] MEDS ORDERED: SODIUM CHLORIDE 0.9% 500 ML IV ONE (05:45)
[2020-01-04 06:53] LABS: BASOPHILS % 0.5 % (0.0-2.0); EOSINOPHILS % 1.6 % (0.0-5.0); HEMATOCRIT. 29.9 % (36.0-48.0); HEMOGLOBIN. 9.9 g/dL (12.0-16.0); LYMPHOCYTES % 23.3 % (20.0-50.0); MEAN CORPUSCULAR HEMOGLOBIN 27.1 pg (28.0-32.0); MEAN CORPUSCULAR VOLUME 81.5 fL (81.0-99.0); MEAN PLATELET VOLUME 7.3 fl (7.4-10.4); MONOCYTES % 11.7 % (2.0-8.0); NEUTROPHILS % 62.9 % (40.0-76.0); PLATELET 231 x1000/uL (130-400); RED BLOOD CELL COUNT 3.67 mill/uL (4.2-5.4); RED CELL DISTRIBUTION WIDTH 15.3 % (11.6-14.6)
[2020-01-04 07:56] LABS: CHLORIDE 103 mEq/L (98-107)
[2020-01-04 08:00] VITALS: BP 104/65
[2020-01-04] MEDS: PANTOPRAZOLE SODIUM 40 MG/VIAL IV SCH ×2 (08:40→21:00)
[2020-01-04] MEDS: MIDODRINE HCL 5MG TABLET PO SCH ×3 (08:41→17:00)
[2020-01-04] MEDS: DEXTROSE 5% WATER 1,000 ML IV SCH ×2 (08:41→21:49)
[2020-01-04 12:00] VITALS: BP 110/60
[2020-01-04] MEDS ORDERED: POTASSIUM CHLORIDE INJ 40 MEQ in DEXT 5% WATER 500 ML IV NR (12:00)
[2020-01-04 16:00] VITALS: BP 120/45
[2020-01-04 20:00] VITALS: BP 116/46
[2020-01-05] VITALS: BP 111/57
[2020-01-05] MEDS: IPRATROPIUM/ALBUTEROL 0.5-3(2.5)MG/3ML NEB HHN SCH ×4 (01:21→13:35)
[2020-01-05 04:00] VITALS: BP 101/59
[2020-01-05 08:00] VITALS: BP 126/60
[2020-01-05] MEDS: MIDODRINE HCL 5MG TABLET PO SCH ×3 (09:00→17:00)
[2020-01-05] MEDS: PANTOPRAZOLE SODIUM 40 MG/VIAL IV SCH ×2 (09:11→21:08)
[2020-01-05 12:00] VITALS: BP 115/53
[2020-01-05 16:00] VITALS: BP 119/62
[2020-01-05 20:00] VITALS: BP 123/43
[2020-01-05] MEDS: DEXTROSE 5% WATER 1,000 ML IV SCH (23:54)
[2020-01-06] VITALS (7 sets, daily range): BP systolic 109–131; BP diastolic 39–76
[2020-01-06] MEDS: IPRATROPIUM/ALBUTEROL 0.5-3(2.5)MG/3ML NEB HHN SCH ×4 (00:27→21:29)
[2020-01-06] MEDS: PANTOPRAZOLE SODIUM 40 MG/VIAL IV SCH ×2 (09:00→22:50)
[2020-01-06] MEDS: MIDODRINE HCL 5MG TABLET PO SCH ×3 (09:00→17:00)
[2020-01-06] MEDS: DEXTROSE 5% WATER 1,000 ML IV SCH (14:02)
[2020-01-06 15:06] LABS: BASOPHILS % 0.4 % (0.0-2.0); EOSINOPHILS % 1.1 % (0.0-5.0); HEMATOCRIT. 31.7 % (36.0-48.0); HEMOGLOBIN. 10.5 g/dL (12.0-16.0); LYMPHOCYTES % 19.1 % (20.0-50.0); MEAN CORPUSCULAR HEMOGLOBIN 26.8 pg (28.0-32.0); MEAN CORPUSCULAR VOLUME 80.7 fL (81.0-99.0); MEAN PLATELET VOLUME 6.9 fl (7.4-10.4); MONOCYTES % 12.4 % (2.0-8.0); PLATELET 227 x1000/uL (130-400); RED BLOOD CELL COUNT 3.93 mill/uL (4.2-5.4); RED CELL DISTRIBUTION WIDTH 15.3 % (11.6-14.6)
[2020-01-06 15:14] LABS: CHLORIDE 94 mEq/L (98-107)
[2020-01-07] VITALS: BP 108/63
[2020-01-07] MEDS: DEXTROSE 5% WATER 1,000 ML IV SCH ×2 (02:42→17:06)
[2020-01-07] MEDS: IPRATROPIUM/ALBUTEROL 0.5-3(2.5)MG/3ML NEB HHN SCH ×4 (02:55→21:22)
[2020-01-07 04:00] VITALS: BP 98/57
[2020-01-07] MEDS ORDERED: BUPIVACAINE HCL 0.5% (5MG/ML) 50ML ONE (06:52)
[2020-01-07] MEDS ORDERED: SKIN ADHESIVE 0.7 GM EA TOP ONE (06:52)
[2020-01-07] MEDS ORDERED: BACITRACIN 50,000 UNITS/VIAL ONE (06:53)
[2020-01-07] MEDS ORDERED: PHENYLEPHRINE HCL 10 MG/ML 1ML (IV VIAL) IV ONE (07:21)
[2020-01-07] MEDS ORDERED: DEXAMETHASONE 4MG/ML 1ML VIAL ONE (07:39)
[2020-01-07] MEDS ORDERED: CEFAZOLIN SODIUM 1000MG/VIAL ONE (08:02)
[2020-01-07] MEDS ORDERED: EPHEDRINE SULFATE 50MG/ML VIAL ONE (08:02)
[2020-01-07] MEDS: PANTOPRAZOLE SODIUM 40 MG/VIAL IV SCH ×2 (08:06→21:06)
[2020-01-07] MEDS: MIDODRINE HCL 5MG TABLET PO SCH ×3 (08:06→17:42)
[2020-01-07] MEDS ORDERED: ONDANSETRON HCL 4MG/2ML INJ ONE (08:17)
[2020-01-07] MEDS ORDERED: EPHEDRINE SULFATE 50MG/ML VIAL IV NR (09:45)
[2020-01-07] MEDS ORDERED: EPHEDRINE SULFATE 50MG/ML VIAL IM NR (09:45)
[2020-01-07 12:00] VITALS: BP 101/53
[2020-01-07 16:00] VITALS: BP 131/65
[2020-01-07 20:00] VITALS: BP 101/68
[2020-01-08] VITALS (9 sets, daily range): BP systolic 71–150; BP diastolic 38–99
[2020-01-08] MEDS: IPRATROPIUM/ALBUTEROL 0.5-3(2.5)MG/3ML NEB HHN SCH ×4 (00:57→22:09)
[2020-01-08] MEDS: DEXTROSE 5% WATER 1,000 ML IV SCH (05:02)
[2020-01-08] MEDS: MIDODRINE HCL 5MG TABLET PO SCH ×3 (08:57→17:00)
[2020-01-08] MEDS: PANTOPRAZOLE SODIUM 40 MG/VIAL IV SCH (08:59)
[2020-01-08] MEDS: DEXT 5%/0.9% NACL 1,000 ML IV SCH ×2 (09:55→17:50)
[2020-01-08] MEDS ORDERED: LIDOCAINE HCL 2% JELLY 5ML ONE (10:37)
[2020-01-08] MEDS ORDERED: SODIUM BICARBONATE 4% (2.4MEQ) 5ML VIAL IV ONE (10:37)
[2020-01-08] MEDS ORDERED: LIDOCAINE HCL 1% 20ML VIAL (Pyxis) INJ ONE (10:37)
[2020-01-08] MEDS ORDERED: IOHEXOL-300 50 ML BOTTLE IV ONE (10:39)
[2020-01-08 12:40] LABS: HEMATOCRIT. 37.8 % (36.0-48.0); HEMOGLOBIN. 12.5 g/dL (12.0-16.0); MEAN CORPUSCULAR VOLUME 82.1 fL (81.0-99.0); MEAN PLATELET VOLUME 7.2 fl (7.4-10.4); PLATELET 248 x1000/uL (130-400); RED BLOOD CELL COUNT 4.61 mill/uL (4.2-5.4); RED CELL DISTRIBUTION WIDTH 15.8 % (11.6-14.6)
[2020-01-08] MEDS ORDERED: SKIN ADHESIVE 0.7 GM EA TOP ONE (13:58)
[2020-01-08] MEDS ORDERED: BUPIVACAINE HCL 0.5% (5MG/ML) 50ML ONE (13:59)
[2020-01-08] MEDS ORDERED: PROPOFOL 200MG/20ML VIAL IV ONE (15:26)
[2020-01-08] MEDS ORDERED: ROCURONIUM BROMIDE 10MG/ML VIAL 5ML IV ONE (15:51)
[2020-01-08 16:01] LABS: BG BASE EXCESS -9.5 mmol/L (-2.0-2.0); BG CARBOXYHEMOGLOBIN 0.3 % (0.5-1.5); BG DEOXYHEMOGLOBIN 19.7 % (0.0-5.0); BG FRACTION INSPIRED OXYGEN 100; BG HCO3 ACT 19.3 mmol/L (22.0-26.0); BG METHEMOGLOBIN 0.2 % (0.0-1.5); BG OXYGEN SATURATION 80.2 % (92.0-98.5); BG OXYHEMOGLOBIN 79.8 % (94.0-97.0); BG PCO2 55.6 mmHg (35.0-45.0); BG PH 7.159 (7.350-7.450); BG PO2 54.8 mmHg (75.0-100.0); BG SAMPLE SITE LEFT RADIAL; BG TOTAL HEMOGLOBIN 11.5 g/dL (12.0-18.0); BG VENT MODE VENT - A/C
[2020-01-08] MEDS ORDERED: NOREPINEPHRINE 4 MG in DEXT 5% WATER 246 ML IV PRN (18:15)
[2020-01-08 18:21] LABS: CHLORIDE 98 mEq/L (98-107)
[2020-01-08 18:43] LABS: PLATELET ESTIMATE NORMAL
[2020-01-08 19:16] LABS: BG BASE EXCESS -6.6 mmol/L (-2.0-2.0); BG CARBOXYHEMOGLOBIN 0.3 % (0.5-1.5); BG DEOXYHEMOGLOBIN 0.4 % (0.0-5.0); BG FRACTION INSPIRED OXYGEN 100; BG HCO3 ACT 20.3 mmol/L (22.0-26.0); BG METHEMOGLOBIN 0.2 % (0.0-1.5); BG OXYGEN SATURATION 99.6 % (92.0-98.5); BG OXYHEMOGLOBIN 99.1 % (94.0-97.0); BG PCO2 46.3 mmHg (35.0-45.0); BG PH 7.259 (7.350-7.450); BG PO2 280.8 mmHg (75.0-100.0); BG SAMPLE SITE LEFT RADIAL; BG TIDAL VOLUME(mL) 450 mL; BG VENT MODE VENT - A/C; BG VENT RATE 12 set
[2020-01-08] MEDS: CEFTRIAXONE 1 G PREMIX 50 ML IV SCH (21:23)
[2020-01-08] MEDS: METRONIDAZOLE 500 MG PREMIX 100 ML IV SCH (22:08)
[2020-01-08] MEDS ORDERED: MORPHINE SULFATE 2 MG/ML CPJ (NOT FOR IM USE) IV PRN (23:30)
[2020-01-08] MEDS ORDERED: NOREPINEPHRINE 16 MG in DEXT 5% WATER 234 ML IV PRN (23:30)
[2020-01-08] MEDS ORDERED: LORAZEPAM 2MG/ML CPJ IV PRN (23:30)
[2020-01-09] VITALS (44 sets, daily range): BP systolic 77–151; BP diastolic 44–106
[2020-01-09] MEDS: IPRATROPIUM/ALBUTEROL 0.5-3(2.5)MG/3ML NEB HHN SCH ×4 (04:40→19:48)
[2020-01-09 05:28] LABS: HEMATOCRIT. 29.5 % (36.0-48.0); HEMOGLOBIN. 9.8 g/dL (12.0-16.0); MEAN CORPUSCULAR HEMOGLOBIN 27.1 pg (28.0-32.0); MEAN CORPUSCULAR VOLUME 81.5 fL (81.0-99.0); MEAN PLATELET VOLUME 7.1 fl (7.4-10.4); PLATELET 206 x1000/uL (130-400); RED BLOOD CELL COUNT 3.63 mill/uL (4.2-5.4)
[2020-01-09 05:37] LABS: CHLORIDE 97 mEq/L (98-107)
[2020-01-09] MEDS: METRONIDAZOLE 500 MG PREMIX 100 ML IV SCH ×3 (06:04→21:04)
[2020-01-09 09:42] LABS: BG BASE EXCESS -4.1 mmol/L (-2.0-2.0); BG CARBOXYHEMOGLOBIN 0.3 % (0.5-1.5); BG DEOXYHEMOGLOBIN 0.2 % (0.0-5.0); BG FRACTION INSPIRED OXYGEN 90; BG HCO3 ACT 18.3 mmol/L (22.0-26.0); BG METHEMOGLOBIN 0.3 % (0.0-1.5); BG OXYGEN SATURATION 99.8 % (92.0-98.5); BG OXYHEMOGLOBIN 99.2 % (94.0-97.0); BG PCO2 25.6 mmHg (35.0-45.0); BG PH 7.471 (7.350-7.450); BG SAMPLE SITE LEFT RADIAL; BG TIDAL VOLUME(mL) 450 mL; BG VENT MODE VENT - A/C; BG VENT RATE 16 set
[2020-01-09] MEDS ORDERED: BUPIVACAINE HCL 0.5% (5MG/ML) 50ML ONE (11:06)
[2020-01-09] MEDS ORDERED: SKIN ADHESIVE 0.7 GM EA TOP ONE (11:06)
[2020-01-09] MEDS ORDERED: PROPOFOL 200MG/20ML VIAL IV ONE (12:37)
[2020-01-09] MEDS: MIDODRINE HCL 5MG TABLET PO SCH ×2 (13:24→17:14)
[2020-01-09 14:24] LABS: PLATELET ESTIMATE NORMAL
[2020-01-09] MEDS: PANTOPRAZOLE SODIUM 40 MG/VIAL IV SCH (21:03)
[2020-01-09] MEDS: CEFTRIAXONE 1 G PREMIX 50 ML IV SCH (21:03)
[2020-01-10] VITALS (91 sets, daily range): BP systolic 71–137; BP diastolic 33–74
[2020-01-10] MEDS: IPRATROPIUM/ALBUTEROL 0.5-3(2.5)MG/3ML NEB HHN SCH ×4 (01:54→20:25)
[2020-01-10] MEDS: METRONIDAZOLE 500 MG PREMIX 100 ML IV SCH ×3 (05:36→21:12)
[2020-01-10] MEDS: DEXT 5%/0.9% NACL 1,000 ML IV SCH ×4 (05:43→20:51)
[2020-01-10 07:29] LABS: BG BASE EXCESS -5.4 mmol/L (-2.0-2.0); BG CARBOXYHEMOGLOBIN 0.3 % (0.5-1.5); BG DEOXYHEMOGLOBIN 1.4 % (0.0-5.0); BG FRACTION INSPIRED OXYGEN 40; BG HCO3 ACT 18.2 mmol/L (22.0-26.0); BG METHEMOGLOBIN 0.3 % (0.0-1.5); BG OXYGEN SATURATION 98.6 % (92.0-98.5); BG PCO2 29.3 mmHg (35.0-45.0); BG PH 7.412 (7.350-7.450); BG PO2 139.9 mmHg (75.0-100.0); BG SAMPLE SITE RIGHT BRACHIAL; BG TIDAL VOLUME(mL) 450 mL; BG TOTAL HEMOGLOBIN 10.3 g/dL (12.0-18.0); BG VENT MODE VENT - A/C; BG VENT RATE 14 set
[2020-01-10] MEDS: PANTOPRAZOLE SODIUM 40 MG/VIAL IV SCH ×2 (08:47→21:12)
[2020-01-10] MEDS: MIDODRINE HCL 5MG TABLET PO SCH ×3 (09:34→21:12)
[2020-01-10] MEDS: CEFTRIAXONE 1 G PREMIX 50 ML IV SCH (21:12)
[2020-01-11] VITALS (83 sets, daily range): BP systolic 86–133; BP diastolic 31–75
[2020-01-11] MEDS: IPRATROPIUM/ALBUTEROL 0.5-3(2.5)MG/3ML NEB HHN SCH ×3 (00:36→13:30)
[2020-01-11] MEDS: METRONIDAZOLE 500 MG PREMIX 100 ML IV SCH ×3 (05:45→21:25)
[2020-01-11] MEDS: MIDODRINE HCL 5MG TABLET PO SCH ×3 (05:45→21:24)
[2020-01-11] MEDS: DEXT 5%/0.9% NACL 1,000 ML IV SCH (06:51)
[2020-01-11] MEDS: PANTOPRAZOLE SODIUM 40 MG/VIAL IV SCH ×2 (08:19→21:24)
[2020-01-11 08:39] LABS: BG BASE EXCESS -6.2 mmol/L (-2.0-2.0); BG CARBOXYHEMOGLOBIN 0.1 % (0.5-1.5); BG DEOXYHEMOGLOBIN 1.4 % (0.0-5.0); BG FRACTION INSPIRED OXYGEN 40; BG HCO3 ACT 17.4 mmol/L (22.0-26.0); BG METHEMOGLOBIN 0.2 % (0.0-1.5); BG OXYGEN SATURATION 98.6 % (92.0-98.5); BG OXYHEMOGLOBIN 98.3 % (94.0-97.0); BG PCO2 28.2 mmHg (35.0-45.0); BG PH 7.408 (7.350-7.450); BG PO2 123.3 mmHg (75.0-100.0); BG PRESSURE SUPPORT 12; BG SAMPLE SITE RIGHT BRACHIAL; BG TIDAL VOLUME(mL) 450 mL; BG TOTAL HEMOGLOBIN 10.5 g/dL (12.0-18.0); BG VENT MODE VENT - SIMV; BG VENT RATE 8 set
[2020-01-11] MEDS ORDERED: FUROSEMIDE 20MG/2ML VIAL IVP NR (11:15)
[2020-01-11] MEDS ORDERED: FOLIC ACID/VITAMIN B COMP W-C TABLET PEG SCH (12:30)
[2020-01-11] MEDS ORDERED: THIAMINE HCL 100MG TABLET PEG NR (12:30)
[2020-01-11 13:43] LABS: BG BASE EXCESS -7.1 mmol/L (-2.0-2.0); BG CARBOXYHEMOGLOBIN 0.3 % (0.5-1.5); BG DEOXYHEMOGLOBIN 2.1 % (0.0-5.0); BG FRACTION INSPIRED OXYGEN 40; BG METHEMOGLOBIN 0.6 % (0.0-1.5); BG OXYGEN SATURATION 97.9 % (92.0-98.5); BG PCO2 21.2 mmHg (35.0-45.0); BG PH 7.469 (7.350-7.450); BG PO2 108.4 mmHg (75.0-100.0); BG PRESSURE SUPPORT 8; BG SAMPLE SITE LEFT RADIAL; BG TOTAL HEMOGLOBIN 9.9 g/dL (12.0-18.0); BG VENT MODE VENT - CPAP
[2020-01-11] MEDS: CEFTRIAXONE 1 G PREMIX 50 ML IV SCH (21:24)
[2020-01-12] VITALS (36 sets, daily range): BP systolic 83–119; BP diastolic 28–59
[2020-01-12] MEDS ORDERED: HYDROCODONE/ACETAMINOPHEN 10/325MG TABLET PO PRN (00:30)
[2020-01-12] MEDS: IPRATROPIUM/ALBUTEROL 0.5-3(2.5)MG/3ML NEB HHN SCH ×3 (01:22→21:05)
[2020-01-12] MEDS: MIDODRINE HCL 5MG TABLET PO SCH ×3 (05:27→22:53)
[2020-01-12] MEDS: METRONIDAZOLE 500 MG PREMIX 100 ML IV SCH ×3 (05:28→22:54)
[2020-01-12] MEDS: IPRATROPIUM/ALBUTEROL 0.5-3(2.5)MG/3ML NEB HHN PRN (08:58)
[2020-01-12] MEDS: PANTOPRAZOLE SODIUM 40 MG/VIAL IV SCH ×2 (09:00→22:53)
[2020-01-12] MEDS: METOCLOPRAMIDE HCL 10MG/2ML VIAL IV SCH ×3 (12:23→23:01)
[2020-01-12 15:54] LABS: BASOPHILS % 0.1 % (0.0-2.0); HEMATOCRIT. 29.8 % (36.0-48.0); HEMOGLOBIN. 9.9 g/dL (12.0-16.0); LYMPHOCYTES % 8.4 % (20.0-50.0); MEAN CORPUSCULAR HEMOGLOBIN 27.2 pg (28.0-32.0); MEAN PLATELET VOLUME 7.1 fl (7.4-10.4); NEUTROPHILS % 80.5 % (40.0-76.0); PLATELET 96 x1000/uL (130-400); RED BLOOD CELL COUNT 3.63 mill/uL (4.2-5.4); RED CELL DISTRIBUTION WIDTH 15.7 % (11.6-14.6)
[2020-01-12 16:02] LABS: CHLORIDE 109 mEq/L (98-107)
[2020-01-12] MEDS: CEFTRIAXONE 1 G PREMIX 50 ML IV SCH (22:54)
[2020-01-13] VITALS (13 sets, daily range): BP systolic 96–139; BP diastolic 46–72
[2020-01-13] MEDS: IPRATROPIUM/ALBUTEROL 0.5-3(2.5)MG/3ML NEB HHN SCH ×4 (02:45→20:59)
[2020-01-13] MEDS: MIDODRINE HCL 5MG TABLET PO SCH ×3 (06:00→21:05)
[2020-01-13] MEDS: METOCLOPRAMIDE HCL 10MG/2ML VIAL IV SCH ×4 (06:42→23:06)
[2020-01-13] MEDS: METRONIDAZOLE 500 MG PREMIX 100 ML IV SCH ×3 (06:43→21:05)
[2020-01-13] MEDS: PANTOPRAZOLE SODIUM 40 MG/VIAL IV SCH ×2 (09:58→20:56)
[2020-01-13 13:54] LABS: BG BASE EXCESS -1.3 mmol/L (-2.0-2.0); BG CARBOXYHEMOGLOBIN 0.2 % (0.5-1.5); BG DEOXYHEMOGLOBIN 9.3 % (0.0-5.0); BG FRACTION INSPIRED OXYGEN 40; BG HCO3 ACT 23.7 mmol/L (22.0-26.0); BG METHEMOGLOBIN 0.3 % (0.0-1.5); BG OXYGEN SATURATION 90.7 % (92.0-98.5); BG OXYHEMOGLOBIN 90.2 % (94.0-97.0); BG PCO2 41.2 mmHg (35.0-45.0); BG PH 7.378 (7.350-7.450); BG PO2 55.7 mmHg (75.0-100.0); BG SAMPLE SITE RIGHT RADIAL; BG TOTAL HEMOGLOBIN 9.9 g/dL (12.0-18.0); BG VENT MODE NASAL CANNULA
[2020-01-13] MEDS ORDERED: FUROSEMIDE 40MG/4ML VIAL IVP SCH (14:00)
[2020-01-13] MEDS: CEFTRIAXONE 1 G PREMIX 50 ML IV SCH (20:56)
[2020-01-14] VITALS (13 sets, daily range): BP systolic 87–127; BP diastolic 35–72
[2020-01-14] MEDS: IPRATROPIUM/ALBUTEROL 0.5-3(2.5)MG/3ML NEB HHN SCH ×4 (01:03→20:47)
[2020-01-14] MEDS: MIDODRINE HCL 5MG TABLET PO SCH ×3 (05:13→20:49)
[2020-01-14] MEDS: METOCLOPRAMIDE HCL 10MG/2ML VIAL IV SCH ×4 (05:14→23:31)
[2020-01-14] MEDS: PANTOPRAZOLE SODIUM 40 MG/VIAL IV SCH ×2 (08:13→20:49)
[2020-01-14 08:37] LABS: BG BASE EXCESS -0.7 mmol/L (-2.0-2.0); BG BILEVEL POS AIRWAY PRESSURE ST=15/5; BG CARBOXYHEMOGLOBIN 0.7 % (0.5-1.5); BG DEOXYHEMOGLOBIN 22.8 % (0.0-5.0); BG FRACTION INSPIRED OXYGEN 60; BG HCO3 ACT 25.1 mmol/L (22.0-26.0); BG METHEMOGLOBIN 0.1 % (0.0-1.5); BG OXYHEMOGLOBIN 76.4 % (94.0-97.0); BG PCO2 46.1 mmHg (35.0-45.0); BG PH 7.353 (7.350-7.450); BG PO2 42.1 mmHg (75.0-100.0); BG SAMPLE SITE RIGHT RADIAL; BG TOTAL HEMOGLOBIN 10.4 g/dL (12.0-18.0); BG VENT MODE MASK - BIPAP
[2020-01-14 11:14] LABS: BG BASE EXCESS -0.9 mmol/L (-2.0-2.0); BG BILEVEL POS AIRWAY PRESSURE ST=15/5; BG CARBOXYHEMOGLOBIN 0.1 % (0.5-1.5); BG DEOXYHEMOGLOBIN 23.2 % (0.0-5.0); BG FRACTION INSPIRED OXYGEN 100; BG HCO3 ACT 25.1 mmol/L (22.0-26.0); BG METHEMOGLOBIN 0.2 % (0.0-1.5); BG OXYGEN SATURATION 76.7 % (92.0-98.5); BG OXYHEMOGLOBIN 76.5 % (94.0-97.0); BG PCO2 47.6 mmHg (35.0-45.0); BG PO2 41.7 mmHg (75.0-100.0); BG SAMPLE SITE LEFT RADIAL; BG TOTAL HEMOGLOBIN 10.5 g/dL (12.0-18.0); BG VENT MODE MASK - BIPAP
[2020-01-14 11:34] LABS: BG BASE EXCESS -0.6 mmol/L (-2.0-2.0); BG BILEVEL POS AIRWAY PRESSURE ST=15/5; BG CARBOXYHEMOGLOBIN 0.5 % (0.5-1.5); BG DEOXYHEMOGLOBIN 3.5 % (0.0-5.0); BG FRACTION INSPIRED OXYGEN 100; BG HCO3 ACT 24.4 mmol/L (22.0-26.0); BG METHEMOGLOBIN 0.3 % (0.0-1.5); BG OXYGEN SATURATION 96.5 % (92.0-98.5); BG OXYHEMOGLOBIN 95.7 % (94.0-97.0); BG PCO2 41.5 mmHg (35.0-45.0); BG PH 7.387 (7.350-7.450); BG PO2 87.3 mmHg (75.0-100.0); BG SAMPLE SITE RIGHT RADIAL; BG TOTAL HEMOGLOBIN 10.1 g/dL (12.0-18.0); BG VENT MODE MASK - BIPAP
[2020-01-15] VITALS (109 sets, daily range): BP systolic 42–172; BP diastolic 15–99
[2020-01-15] MEDS: IPRATROPIUM/ALBUTEROL 0.5-3(2.5)MG/3ML NEB HHN SCH ×3 (01:58→20:47)
[2020-01-15] MEDS: MIDODRINE HCL 5MG TABLET PO SCH ×3 (05:47→21:04)
[2020-01-15] MEDS: METOCLOPRAMIDE HCL 10MG/2ML VIAL IV SCH ×4 (05:47→23:09)
[2020-01-15 08:30] LABS: BG BASE EXCESS 0.7 mmol/L (-2.0-2.0); BG BILEVEL POS AIRWAY PRESSURE ST=15/5; BG CARBOXYHEMOGLOBIN 0.8 % (0.5-1.5); BG DEOXYHEMOGLOBIN 16.8 % (0.0-5.0); BG FRACTION INSPIRED OXYGEN 60; BG HCO3 ACT 26.7 mmol/L (22.0-26.0); BG METHEMOGLOBIN 0.4 % (0.0-1.5); BG PCO2 49.3 mmHg (35.0-45.0); BG PH 7.352 (7.350-7.450); BG PO2 44.3 mmHg (75.0-100.0); BG SAMPLE SITE RIGHT RADIAL; BG TOTAL HEMOGLOBIN 10.2 g/dL (12.0-18.0); BG VENT MODE MASK - BIPAP
[2020-01-15] MEDS: PANTOPRAZOLE SODIUM 40 MG/VIAL IV SCH ×2 (08:43→21:04)
[2020-01-15] MEDS ORDERED: LORAZEPAM 2MG/ML CPJ IV PRN (09:00)
[2020-01-15] MEDS ORDERED: MORPHINE SULFATE 2 MG/ML CPJ (NOT FOR IM USE) IV PRN (09:00)
[2020-01-15] MEDS ORDERED: ETOMIDATE 2MG/ML 10ML VIAL IV ONE (09:41)
[2020-01-15] MEDS ORDERED: VECURONIUM BROMIDE 10 MG/VIAL IV ONE (09:41)
[2020-01-15] MEDS ORDERED: LIDOCAINE HCL 1% 20ML VIAL (Pyxis) INJ ONE (10:28)
[2020-01-15] MEDS ORDERED: SODIUM BICARBONATE 4% (2.4MEQ) 5ML VIAL IV ONE (10:28)
[2020-01-15] MEDS ORDERED: SODIUM CHLORIDE 0.9% 1,000 ML IV ONE (10:30)
[2020-01-15 10:34] LABS: BG BASE EXCESS -2.8 mmol/L (-2.0-2.0); BG CARBOXYHEMOGLOBIN 0.6 % (0.5-1.5); BG DEOXYHEMOGLOBIN 7.7 % (0.0-5.0); BG FRACTION INSPIRED OXYGEN 100; BG METHEMOGLOBIN 0.4 % (0.0-1.5); BG OXYGEN SATURATION 92.2 % (92.0-98.5); BG OXYHEMOGLOBIN 91.3 % (94.0-97.0); BG PCO2 67.3 mmHg (35.0-45.0); BG PH 7.204 (7.350-7.450); BG PO2 69.3 mmHg (75.0-100.0); BG SAMPLE SITE RIGHT FEMORAL; BG TIDAL VOLUME(mL) 450 mL; BG TOTAL HEMOGLOBIN 10.6 g/dL (12.0-18.0); BG VENT MODE VENT - A/C; BG VENT RATE 12 set
[2020-01-15] MEDS ORDERED: PHENYLEPHRINE 40 MG in DEXT 5% WATER 246 ML IV PRN (10:45)
[2020-01-15] MEDS ORDERED: PHENYLEPHRINE 20 MG in DEXT 5% WATER 248 ML IV PRN (10:45)
[2020-01-15] MEDS: NOREPINEPHRINE 8 MG in DEXT 5% WATER 242 ML IV PRN ×3 (10:45→23:07)
[2020-01-15 11:16] LABS: BG BASE EXCESS -2.1 mmol/L (-2.0-2.0); BG CARBOXYHEMOGLOBIN 0.2 % (0.5-1.5); BG DEOXYHEMOGLOBIN 4.8 % (0.0-5.0); BG FRACTION INSPIRED OXYGEN 100; BG METHEMOGLOBIN 0.3 % (0.0-1.5); BG OXYGEN SATURATION 95.2 % (92.0-98.5); BG OXYHEMOGLOBIN 94.7 % (94.0-97.0); BG PCO2 55.2 mmHg (35.0-45.0); BG PH 7.274 (7.350-7.450); BG SAMPLE SITE RIGHT FEMORAL; BG TIDAL VOLUME(mL) 400 mL; BG TOTAL HEMOGLOBIN 9.4 g/dL (12.0-18.0); BG VENT MODE VENT - A/C; BG VENT RATE 16 set
[2020-01-15 11:59] LABS: HEMATOCRIT. 30.6 % (36.0-48.0); MEAN CORPUSCULAR HEMOGLOBIN 26.6 pg (28.0-32.0); MEAN CORPUSCULAR VOLUME 81.7 fL (81.0-99.0); MEAN PLATELET VOLUME 7.2 fl (7.4-10.4); PLATELET 70 x1000/uL (130-400); RED BLOOD CELL COUNT 3.75 mill/uL (4.2-5.4); RED CELL DISTRIBUTION WIDTH 16.1 % (11.6-14.6)
[2020-01-15 12:07] LABS: CHLORIDE 113 mEq/L (98-107)
[2020-01-15 13:19] LABS: PLATELET ESTIMATE DECREASED
[2020-01-15] MEDS: PHENYLEPHRINE 80 MG in DEXT 5% WATER 492 ML IV PRN ×2 (14:57→22:27)
[2020-01-15] MEDS: DEXT 5%/0.9% NACL 1,000 ML IV SCH (17:25)
[2020-01-15] MEDS ORDERED: KCL 20MEQ/100ML PREMIX 100 ML IV SCH (17:30)
[2020-01-15] MEDS: DOPAMINE 800MG PREMIX (DOUBLE) 250 ML IV PRN (18:47)
[2020-01-16] VITALS (96 sets, daily range): BP systolic 51–160; BP diastolic 16–89
[2020-01-16] MEDS: IPRATROPIUM/ALBUTEROL 0.5-3(2.5)MG/3ML NEB HHN SCH ×3 (01:59→20:28)
[2020-01-16] MEDS: DOPAMINE 800MG PREMIX (DOUBLE) 250 ML IV PRN ×3 (03:38→17:15)
[2020-01-16] MEDS: DEXT 5%/0.9% NACL 1,000 ML IV SCH ×3 (03:38→22:30)
[2020-01-16] MEDS: NOREPINEPHRINE 8 MG in DEXT 5% WATER 242 ML IV PRN ×2 (03:43→07:47)
[2020-01-16] MEDS: METOCLOPRAMIDE HCL 10MG/2ML VIAL IV SCH ×4 (05:03→23:08)
[2020-01-16] MEDS: MIDODRINE HCL 5MG TABLET PO SCH ×3 (05:05→21:05)
[2020-01-16] MEDS: PHENYLEPHRINE 80 MG in DEXT 5% WATER 492 ML IV PRN ×3 (05:39→20:20)
[2020-01-16 06:39] LABS: HEMATOCRIT. 27.7 % (36.0-48.0); MEAN CORPUSCULAR HEMOGLOBIN 26.9 pg (28.0-32.0); MEAN CORPUSCULAR VOLUME 82.8 fL (81.0-99.0); MEAN PLATELET VOLUME 7.8 fl (7.4-10.4); PLATELET 54 x1000/uL (130-400); RED BLOOD CELL COUNT 3.35 mill/uL (4.2-5.4); RED CELL DISTRIBUTION WIDTH 16.6 % (11.6-14.6)
[2020-01-16 06:48] LABS: CHLORIDE 104 mEq/L (98-107)
[2020-01-16 08:03] LABS: BG BASE EXCESS -3.2 mmol/L (-2.0-2.0); BG DEOXYHEMOGLOBIN 5.2 % (0.0-5.0); BG FRACTION INSPIRED OXYGEN 100; BG HCO3 ACT 23.5 mmol/L (22.0-26.0); BG OXYGEN SATURATION 94.8 % (92.0-98.5); BG OXYHEMOGLOBIN 94.8 % (94.0-97.0); BG PCO2 50.5 mmHg (35.0-45.0); BG PH 7.286 (7.350-7.450); BG PO2 70.2 mmHg (75.0-100.0); BG SAMPLE SITE RIGHT RADIAL; BG TIDAL VOLUME(mL) 400 mL; BG TOTAL HEMOGLOBIN 9.6 g/dL (12.0-18.0); BG VENT MODE VENT - A/C; BG VENT RATE 16 set
[2020-01-16] MEDS: IPRATROPIUM/ALBUTEROL 0.5-3(2.5)MG/3ML NEB HHN PRN (08:45)
[2020-01-16] MEDS: PANTOPRAZOLE SODIUM 40 MG/VIAL IV SCH ×2 (09:30→21:05)
[2020-01-16] MEDS ORDERED: MAGNESIUM 4 G PREMIX 100 ML IV SCH (11:00)
[2020-01-16 11:49] LABS: PLATELET ESTIMATE MARKEDLY DECREASED
[2020-01-16] MEDS: NOREPINEPHRINE 16 MG in DEXT 5% WATER 484 ML IV PRN ×2 (12:00→20:19)
[2020-01-16] MEDS ORDERED: POTASSIUM CHLORIDE INJ 40 MEQ in DEXT 5% WATER 250 ML IV NR (17:30)
[2020-01-16] MEDS: VASOPRESSIN 10 UNIT in SODIUM CHLORIDE 0.9% 99.5 ML IV PRN ×2 (18:38→23:37)
[2020-01-17] VITALS (83 sets, daily range): BP systolic 85–195; BP diastolic 16–105
[2020-01-17] MEDS: DOPAMINE 800MG PREMIX (DOUBLE) 250 ML IV PRN ×2 (00:04→08:21)
[2020-01-17] MEDS: PHENYLEPHRINE 80 MG in DEXT 5% WATER 492 ML IV PRN ×3 (03:58→20:21)
[2020-01-17] MEDS: METOCLOPRAMIDE HCL 10MG/2ML VIAL IV SCH ×3 (05:07→18:00)
[2020-01-17] MEDS: MIDODRINE HCL 5MG TABLET PO SCH ×2 (05:08→12:58)
[2020-01-17] MEDS: NOREPINEPHRINE 16 MG in DEXT 5% WATER 484 ML IV PRN ×2 (05:58→17:22)
[2020-01-17 06:46] LABS: HEMATOCRIT. 26.1 % (36.0-48.0); HEMOGLOBIN. 8.6 g/dL (12.0-16.0); MEAN CORPUSCULAR HEMOGLOBIN 27.1 pg (28.0-32.0); MEAN CORPUSCULAR VOLUME 82.1 fL (81.0-99.0); MEAN PLATELET VOLUME 6.7 fl (7.4-10.4); RED BLOOD CELL COUNT 3.18 mill/uL (4.2-5.4); RED CELL DISTRIBUTION WIDTH 16.8 % (11.6-14.6)
[2020-01-17 06:56] LABS: CHLORIDE 98 mEq/L (98-107)
[2020-01-17 07:46] LABS: NUCLEATED RED BLOOD CELLS 3 /100 WBC
[2020-01-17 07:47] LABS: PLATELET ESTIMATE MARKEDLY DECREASED
[2020-01-17 07:48] LABS: PLATELET 19 x1000/uL (130-400)
[2020-01-17] MEDS: VASOPRESSIN 10 UNIT in SODIUM CHLORIDE 0.9% 99.5 ML IV PRN ×3 (08:21→18:48)
[2020-01-17] MEDS: IPRATROPIUM/ALBUTEROL 0.5-3(2.5)MG/3ML NEB HHN SCH ×3 (08:30→20:16)
[2020-01-17] MEDS: PANTOPRAZOLE SODIUM 40 MG/VIAL IV SCH (09:12)
[2020-01-17 10:26] LABS: BG BASE EXCESS -11.7 mmol/L (-2.0-2.0); BG CARBOXYHEMOGLOBIN 1.5 % (0.5-1.5); BG DEOXYHEMOGLOBIN 15.8 % (0.0-5.0); BG FRACTION INSPIRED OXYGEN 100; BG HCO3 ACT 18.2 mmol/L (22.0-26.0); BG METHEMOGLOBIN 0.6 % (0.0-1.5); BG OXYGEN SATURATION 83.9 % (92.0-98.5); BG OXYHEMOGLOBIN 82.1 % (94.0-97.0); BG PCO2 64.3 mmHg (35.0-45.0); BG PH 7.069 (7.350-7.450); BG PO2 52.4 mmHg (75.0-100.0); BG SAMPLE SITE RIGHT BRACHIAL; BG TIDAL VOLUME(mL) 400 mL; BG TOTAL HEMOGLOBIN 8.6 g/dL (12.0-18.0); BG VENT MODE VENT - A/C; BG VENT RATE 20 set
[2020-01-17] MEDS ORDERED: SODIUM BICARBONATE 8.4% 1 MEQ/ML 50ML SYR IV NR (10:45)
[2020-01-17] MEDS ORDERED: MAGNESIUM 4 G PREMIX 100 ML IV SCH (12:00)
[2020-01-17] MEDS ORDERED: CALCIUM GLUCONATE IV SCH (12:30)
[2020-01-17] MEDS ORDERED: WATER IV SCH (12:30)
[2020-01-17] MEDS ORDERED: SODIUM BICARBONATE 100 MEQ in SODIUM CHLORIDE 0.45% 900 ML IV SCH (12:30)
[2020-01-17] MEDS ORDERED: DEXT 5% IV SCH (12:30)
[2020-01-17] MEDS ORDERED: MORPHINE SULFATE 2 MG/ML CPJ (NOT FOR IM USE) IV PRN (19:30)
== END 2020-01-17 21:20 | disposition expired | DRG 853 ==
LOC: ER 01:51 → MICUSO 04:21 → ENRESERV 08:31 → 5EST 12-29 14:15 → 6EST 01-03 11:00 → MICUNO 01-08 23:05 → 5EST 01-12 12:30 → CVICU 01-15 09:15
PROVIDERS: ADMIT Family Medicine; ATTEND Family Medicine
PROC: 5A1945Z Respiratory Ventilation, 24-96 Consecutive Hours (ICD-10-PCS; principal; 2019-12-25)
PROC: 0BH17EZ Insertion of Endotracheal Airway into Trachea, Via Natural or Artificial Opening (ICD-10-PCS; 2019-12-25)
PROC: B544ZZA Ultrasonography of Left Jugular Veins, Guidance (ICD-10-PCS; 2019-12-25)
PROC: 05HN33Z Insertion of Infusion Device into Left Internal Jugular Vein, Percutaneous Approach (ICD-10-PCS; 2019-12-25)
PROC: 0DJ08ZZ Inspection of Upper Intestinal Tract, Via Natural or Artificial Opening Endoscopic (ICD-10-PCS; 2020-01-02)
PROC: 0DH63UZ Insertion of Feeding Device into Stomach, Percutaneous Approach (ICD-10-PCS; 2020-01-07)
PROC: 0DJ0XZZ Inspection of Upper Intestinal Tract, External Approach (ICD-10-PCS; 2020-01-08)
PROC: 0BH17EZ Insertion of Endotracheal Airway into Trachea, Via Natural or Artificial Opening (ICD-10-PCS; 2020-01-08)
PROC: 5A1945Z Respiratory Ventilation, 24-96 Consecutive Hours (ICD-10-PCS; 2020-01-08)
PROC: 0DH60UZ Insertion of Feeding Device into Stomach, Open Approach (ICD-10-PCS; 2020-01-09)
PROC: 5A09457 Assistance with Respiratory Ventilation, 24-96 Consecutive Hours, Continuous Positive Airway Pressure (ICD-10-PCS; 2020-01-13)
PROC: 0W9930Z Drainage of Right Pleural Cavity with Drainage Device, Percutaneous Approach (ICD-10-PCS; 2020-01-15)
PROC: 5A12012 Performance of Cardiac Output, Single, Manual (ICD-10-PCS; 2020-01-15)
PROC: 5A1945Z Respiratory Ventilation, 24-96 Consecutive Hours (ICD-10-PCS; 2020-01-15)
PROC: 0BH17EZ Insertion of Endotracheal Airway into Trachea, Via Natural or Artificial Opening (ICD-10-PCS; 2020-01-15)
DX: A41.89 Other specified sepsis (principal); E43 Unspecified severe protein-calorie malnutrition; J96.00 Acute respiratory failure, unspecified whether with hypoxia or hypercapnia; J93.0 Spontaneous tension pneumothorax; J69.0 Pneumonitis due to inhalation of food and vomit; J96.01 Acute respiratory failure with hypoxia; J96.02 Acute respiratory failure with hypercapnia; R65.21 Severe sepsis with septic shock; N39.0 Urinary tract infection, site not specified; I50.32 Chronic diastolic (congestive) heart failure; E87.0 Hyperosmolality and hypernatremia; E87.1 Hypo-osmolality and hyponatremia; G93.1 Anoxic brain damage, not elsewhere classified; J93.82 Other air leak; Z66 Do not resuscitate; Z51.5 Encounter for palliative care; I11.0 Hypertensive heart disease with heart failure; E11.9 Type 2 diabetes mellitus without complications; D63.8 Anemia in other chronic diseases classified elsewhere; D69.6 Thrombocytopenia, unspecified; E87.6 Hypokalemia; F01.50 Vascular dementia, unspecified severity, without behavioral disturbance, psychotic disturbance, mood disturbance, and anxiety; Z96.649 Presence of unspecified artificial hip joint; K21.9 Gastro-esophageal reflux disease without esophagitis; H54.8 Legal blindness, as defined in USA; J44.9 Chronic obstructive pulmonary disease, unspecified; L89.899 Pressure ulcer of other site, unspecified stage; I46.9 Cardiac arrest, cause unspecified; K22.5 Diverticulum of esophagus, acquired; M19.90 Unspecified osteoarthritis, unspecified site; R62.7 Adult failure to thrive; Y95 Nosocomial condition; Z22.322 Carrier or suspected carrier of Methicillin resistant Staphylococcus aureus; Z74.01 Bed confinement status; Z82.49 Family history of ischemic heart disease and other diseases of the circulatory system; Z87.442 Personal history of urinary calculi; Z87.81 Personal history of (healed) traumatic fracture; Z68.26 Body mass index [BMI] 26.0-26.9, adult; Z79.2 Long term (current) use of antibiotics; Z79.899 Other long term (current) drug therapy; Z03.818 Encounter for observation for suspected exposure to other biological agents ruled out
CPT/HCPCS: 36415; 36600; 49450; 71045; 74018; 80048; 80053; 80061; 80202; 81003; 82040; 82375; 82550; 82553; 82805; 82962; 83605; 83735; 83880; 84134; 84145; 84484; 85025; 85027; 87070; 87106; 92610; 93005; 94002; 94003; 94640; 94660; 94667; 96365; 97162; 99291; C1769; C9113; J0456; J0610; J0690; J0696; J1100; J1200; J1265; J1650; J1940; J2060; J2250; J2270; J2370; J2405; J2543; J2704; J2765; J3010; J3370; J3475; J3480; J3490; J7030; J7042; J7050; J7060; J7608; Q9967; U0003-CS